=== PATIENT | male | born 1930 | race Caucasian/White ===

== ENCOUNTER → 2016-04-05 | Outpatient (CLI) | payer MEDICARE, OTHER ==
[2016-04-05 09:10] LABS: ALT 36 U/L (21-72); AST 30 U/L (17-59); Alkaline Phosphatase 83 U/L (38-126); Anion Gap 10 mmol/L; Blood Urea Nitrogen 16 mg/dL (9-20); Calcium 9.1 mg/dL (8.4-10.2); Carbon Dioxide 29 mmol/L (22-30); Chloride 107 mmol/L (98-107); Cholesterol 122 mg/dL (<200); Glucose 116 mg/dL (74-99); HDL Cholesterol 28 mg/dL (40-60); Non-African American GFR(MDRD) >60 (>60 ml/min/1.73 sqM); Potassium 4.8 mmol/L (3.5-5.1); Sodium 146 mmol/L (137-145); Total Bilirubin 1.2 mg/dL (0.2-1.3); Triglycerides 152 mg/dL (<150)
== END | disposition home or self-care (01) ==
LOC: LABWHC1 08:25
PROVIDERS: ATTEND Internal Medicine Interventional Cardiology
DX: E78.2 Mixed hyperlipidemia (principal)
CPT/HCPCS: 36415; 80053; 80061

== ENCOUNTER 2016-05-02 00:18 | Observation (INO) | payer MEDICARE, OTHER ==
[2016-05-02] MEDS ORDERED: NITROGLYCERIN SL TABS 0.4 MG TAB SUBLINGUAL STA ×3 (00:44)
[2016-05-02] MEDS ORDERED: ASPIRIN 81 MG CHEW PO STA (00:44)
--- NOTE | 2016-05-02 00:47 | ED ---
General Adult HPI - General Chief complaint: Chest Pain Stated complaint: Chest Pain Time Seen by Provider: 05/02/16 00:28 Source: patient, family, RN notes reviewed Mode of arrival: wheelchair Limitations: no limitations - History of Present Illness Initial comments: Patient is a pleasant 86-year-old male presenting to emergency Department complaining of chest discomfort. Onset of symptoms was about an hour ago. Discomfort remains. Discomfort is described as burning in the chest without radiation. Patient may feel slightly short of breath and was a little bit sweaty earlier. No nausea. Patient is unclear if he has had similar symptoms previously. Patient took a Prilosec and dissolvable antacid without improvement of symptoms. Patient does have history of CABG approximately 14 months ago. - Related Data Home Medications Medication Instructions Recorded Confirmed Atorvastatin [Lipitor] 40 mg PO HS 06/30/14 05/02/16 Metoprolol Tartrate [Lopressor] 50 mg PO DAILY 06/30/14 05/02/16 Warfarin [Coumadin] 5 mg PO SUTUWETHFRSA 01/01/16 05/02/16 Warfarin [Coumadin] 7.5 mg PO MO 01/01/16 05/02/16 rOPINIRole HCL [Requip] 2 mg PO BID 01/01/16 05/02/16 Calcium Acetate [Phoslo] 667 mg PO DAILY 05/02/16 05/02/16 Cyanocobalamin (Vitamin B-12) 1,000 mcg PO DAILY 05/02/16 05/02/16 [Vitamin B-12] Docusate [Colace] 100 mg PO BID 05/02/16 05/02/16 Zypan 1 tab PO DAILY 05/02/16 05/02/16 Allergies Allergy/AdvReac Type Severity Reaction Status Date / Time cat dander Allergy Itching Verified 05/02/16 00:32 pollen extracts Allergy Unknown Verified 05/02/16 00:32 Review of Systems ROS Statement: Those systems with pertinent positive or pertinent negative responses have been documented in the HPI. ROS Other: All systems not noted in ROS Statement are negative. Constitutional: Denies: fever Eyes: Denies: eye pain ENT: Denies: ear pain Respiratory: Reports: dyspnea. Denies: cough Cardiovascular: Reports: chest pain Endocrine: Denies: fatigue Gastrointestinal: Denies: abdominal pain, nausea Genitourinary: Denies: dysuria Musculoskeletal: Denies: back pain Skin: Denies: rash Neurological: Denies: weakness Past Medical History Past Medical History: Hyperlipidemia, Hypertension Additional Past Medical History / Comment(s): [place], RLS, intubated for over a week - ARDS leading to prolonged hospital stay History of Any Multi-Drug Resistant Organisms: None Reported Past Surgical History: Coronary Bypass/CABG, Heart Catheterization With Stent, Pacemaker, Tonsillectomy Additional Past Surgical History / Comment(s): 3 vessel bypass 2014, umbilical hernia repair, aortic valve replacement, cardiac stent x2 Past Anesthesia/Blood Transfusion Reactions: No Reported Reaction Date of Last Stent Placement:: 2010 Type of Cardiac Device: Permanent Pacemaker Device Placement Date:: 03/2014 Past Psychological History: No Psychological Hx Reported Smoking Status: Never smoker Past Alcohol Use History: Occasional Past Drug Use History: None Reported - Past Family History Daughter(s) History Unknown: Yes Family Medical History: Cancer Additional Family Medical History / Comment(s): BREAST Son(s) History Unknown: Yes Family Medical History: Cancer Additional Family Medical History / Comment(s): PANCREATIC Mother History Unknown: Yes Family Medical History: Cancer Additional Family Medical History / Comment(s): Breast cancer, at age 49 Father History Unknown: Yes Family Medical History: Myocardial Infarction ([place]) Additional Family Medical History / Comment(s): at age 60 d/t [place] General Exam Limitations: no limitations General appearance: alert, in no apparent distress Head exam: Present: atraumatic Eye exam: Present: normal appearance, PERRL ENT exam: Present: normal oropharynx Neck exam: Present: normal inspection Respiratory exam: Present: normal lung sounds bilaterally. Absent: chest wall tenderness Cardiovascular Exam: Present: regular rate, normal rhythm Expanded Peripheral pulses: 2+: Radial (R), Radial (L), Posterior Tibialis (R), Posterior Tibialis (L) GI/Abdominal exam: Present: soft. Absent: distended, tenderness Extremities exam: Present: normal inspection. Absent: pedal edema, calf tenderness Neurological exam: Present: alert Psychiatric exam: Present: normal affect, normal mood Skin exam: Absent: rash Course Vital Signs 05/02/16 05/02/16 05/02/16 00:29 00:51 01:07 Temperature 97.6 F Pulse Rate 90 87 72 Respiratory 18 16 16 Rate Blood Pressure 153/94 121/67 92/57 O2 Sat by Pulse 98 97 95 Oximetry EKG Findings - EKG Comments: EKG Findings:: Paced rhythm at 89. KS 202. QRS 160. QT 416. QTC 506. Left axis. Wide complex QRS. Nonspecific ST-T. Medical Decision Making - Medical Decision Making Patient reevaluated and partially improved. Case discussed in detail with Dr. Membreno, who will admit his patient with cardiology consult. Patient updated. - Lab Data Result diagrams: 05/02/16 00:40 05/02/16 00:40 Lab Results 05/02/16 05/02/16 05/02/16 Range/Units 00:40 00:40 00:40 WBC 7.4 (3.8-10.6) k/uL RBC 4.93 (4.30-5.90) m/uL Hgb 14.7 (13.0-17.5) gm/dL Hct 44.8 (39.0-53.0) % MCV 90.8 (80.0-100.0) fL MCH 29.8 (25.0-35.0) pg MCHC 32.9 (31.0-37.0) g/dL RDW 14.2 (11.5-15.5) % Plt Count 157 (150-450) k/uL Neutrophils % 48 % Lymphocytes % 32 % Monocytes % 8 % Eosinophils % 8 % Basophils % 1 % Neutrophils # 3.6 (1.3-7.7) k/uL Lymphocytes # 2.4 (1.0-4.8) k/uL Monocytes # 0.6 (0-1.0) k/uL Eosinophils # 0.6 (0-0.7) k/uL Basophils # 0.1 (0-0.2) k/uL PT (9.0-12.0) sec INR (<1.1) APTT (22.0-30.0) sec Sodium 141 (137-145) mmol/L Potassium 4.0 (3.5-5.1) mmol/L Chloride 107 (98-107) mmol/L Carbon Dioxide 25 (22-30) mmol/L Anion Gap 9 mmol/L BUN 19 (9-20) mg/dL Creatinine 1.00 (0.66-1.25) mg/dL Est GFR (MDRD) Af Amer >60 (>60 ml/min/1.73 sqM) Est GFR (MDRD) Non-Af >60 (>60 ml/min/1.73 sqM) Glucose 118 H (74-99) mg/dL Calcium 9.4 (8.4-10.2) mg/dL Magnesium 2.0 (1.6-2.3) mg/dL Total Bilirubin 1.1 (0.2-1.3) mg/dL AST 32 (17-59) U/L ALT 46 (21-72) U/L Alkaline Phosphatase 97 (38-126) U/L Total Creatine Kinase 82 (55-170) U/L CK-MB (CK-2) 1.2 (0.0-2.4) ng/mL CK-MB (CK-2) Rel Index 1.5 Troponin I <0.012 (0.000-0.034) ng/mL Total Protein 6.6 (6.3-8.2) g/dL Albumin 3.7 (3.5-5.0) g/dL 05/02/16 Range/Units 00:40 WBC (3.8-10.6) k/uL RBC (4.30-5.90) m/uL Hgb (13.0-17.5) gm/dL Hct (39.0-53.0) % MCV (80.0-100.0) fL MCH (25.0-35.0) pg MCHC (31.0-37.0) g/dL RDW (11.5-15.5) % Plt Count (150-450) k/uL Neutrophils % % Lymphocytes % % Monocytes % % Eosinophils % % Basophils % % Neutrophils # (1.3-7.7) k/uL Lymphocytes # (1.0-4.8) k/uL Monocytes # (0-1.0) k/uL Eosinophils # (0-0.7) k/uL Basophils # (0-0.2) k/uL PT 19.3 H (9.0-12.0) sec INR 2.0 (<1.1) APTT 27.0 (22.0-30.0) sec Sodium (137-145) mmol/L Potassium (3.5-5.1) mmol/L Chloride (98-107) mmol/L Carbon Dioxide (22-30) mmol/L Anion Gap mmol/L BUN (9-20) mg/dL Creatinine (0.66-1.25) mg/dL Est GFR (MDRD) Af Amer (>60 ml/min/1.73 sqM) Est GFR (MDRD) Non-Af (>60 ml/min/1.73 sqM) Glucose (74-99) mg/dL Calcium (8.4-10.2) mg/dL Magnesium (1.6-2.3) mg/dL Total Bilirubin (0.2-1.3) mg/dL AST (17-59) U/L ALT (21-72) U/L Alkaline Phosphatase (38-126) U/L Total Creatine Kinase (55-170) U/L CK-MB (CK-2) (0.0-2.4) ng/mL CK-MB (CK-2) Rel Index Troponin I (0.000-0.034) ng/mL Total Protein (6.3-8.2) g/dL Albumin (3.5-5.0) g/dL - Radiology Data Radiology results: image reviewed (Chest x-ray shows mild interstitial prominence.) Disposition Clinical Impression: Chest pain Disposition: ADMITTED IP TO THIS HOSP
[2016-05-02 00:56] LABS: Basophils # (A) 0.1 k/uL (0-0.2); Basophils % (A) 1 %; CH 30.6; CHCM 33.9; Eosinophils # (A) 0.6 k/uL (0-0.7); Eosinophils % (A) 8 %; HCT 44.8 % (39.0-53.0); HDW 2.97; HGB 14.7 gm/dL (13.0-17.5); Luc # (Auto) 0.25; Luc % (Auto) 3; Lymphocytes # (A) 2.4 k/uL (1.0-4.8); Lymphocytes % (A) 32 %; MCH 29.8 pg (25.0-35.0); MCHC 32.9 g/dL (31.0-37.0); MCV 90.8 fL (80.0-100.0); Mean Platelet Volume 9.5; Monocytes # (A) 0.6 k/uL (0-1.0); Monocytes % (A) 8 %; Neutrophils # (A) 3.6 k/uL (1.3-7.7); Neutrophils % (A) 48 %; RBC 4.93 m/uL (4.30-5.90); RDW 14.2 % (11.5-15.5); WBC 7.4 k/uL (3.8-10.6); WBC (Perox) 7.28
[2016-05-02 01:02] LABS: ALT 46 U/L (21-72); AST 32 U/L (17-59); Alkaline Phosphatase 97 U/L (38-126); Anion Gap 9 mmol/L; Blood Urea Nitrogen 19 mg/dL (9-20); Calcium 9.4 mg/dL (8.4-10.2); Carbon Dioxide 25 mmol/L (22-30); Chloride 107 mmol/L (98-107); Glucose 118 mg/dL (74-99); Non-African American GFR(MDRD) >60 (>60 ml/min/1.73 sqM); Prothrombin Time 19.3 sec (9.0-12.0); Sodium 141 mmol/L (137-145); Total Bilirubin 1.1 mg/dL (0.2-1.3); Total Protein 6.6 g/dL (6.3-8.2)
--- NOTE | 2016-05-02 01:08 | XR ---
Exam: XR CXR 2 VIEWS History: Chest pain. Comparison: 01/01/16. Findings: The left pacemaker redemonstrated. No focal consolidation or significant effusion. Mild prominence of pulmonary vasculature. Heart shadow is normal in transverse dimension. Small nodular opacity in the lateral right lower is unchanged and probably represents a nipple shadow. Impression: Redemonstration of mild prominence of interstitial lung markings/vessels. Similar to 01/01/16. No new focal consolidation or significant effusion. No substantial change appreciated.
[2016-05-02 01:18] LABS: Creatine Kinase 82 U/L (55-170)
[2016-05-02 01:31] LABS: Creatine Kinase MB 1.2 ng/mL (0.0-2.4); Troponin I <0.012 ng/mL (0.000-0.034)
[2016-05-02] MEDS ORDERED: NITROGLYCERIN SL TABS 0.4 MG TAB SUBLINGUAL PRN ×2 (01:50→09:42)
[2016-05-02] MEDS: NITROGLYCERIN OINT 1 INCH/GM PACKET TOPICAL SCH (06:23)
[2016-05-02 07:24] LABS: Creatine Kinase 65 U/L (55-170)
[2016-05-02 07:37] LABS: Troponin I <0.012 ng/mL (0.000-0.034)
[2016-05-02] MEDS ORDERED: ZYPAN PO SCH (09:00)
--- NOTE | 2016-05-02 09:12 | P.CRDCN ---
History of Present Illness Consult date: 05/02/16 Requesting physician: Rubens Membreno Consult reason: chest pain Chief complaint: Chest pain History of present illness: This is a pleasant 86-year-old gentleman who follows regularly with Dr. Arceo in the office. He has a known history of coronary artery disease with prior coronary artery bypass grafting surgery, patient underwent saphenous vein graft to the OM1 and 2, saphenous vein graft to the RCA, history also of tissue aortic valve in 2014. Prior to that the patient did undergo stent placement of the RCA in 2009 and 2010. Patient also has history of hypertension , hyperlipidemia, peripheral vascular disease, prior pacemaker implantation, and paroxysmal atrial fibrillation. Most recent stress test was performed here in December 2015 which did not reveal any evidence of reversible ischemia. He presents to the hospital on this occasion with symptoms of chest discomfort which she describes as heartburn. He states that the symptoms woke him from sleep, he took antacids without any relief of symptoms, and came to the emergency room for further evaluation. He does state that he has been getting these symptoms off and on, he describes them as a burning sensation in the center of his chest. He denies any associated diaphoresis, mild shortness of breath and no nausea. EKG on arrival here shows atrial sensed ventricular paced rhythm with underlying normal sinus rhythm. EKG performed this morning shows paced rhythm with underlying normal sinus rhythm and nonspecific ST-T wave changes. He is noted to have occasional PVCs on the monitor. Chest x-ray does not reveal any acute changes. Mild prominence of interstitial lung markings similar to S2 x-ray performed in December. Blood pressure on arrival to the emergency room 153/90 with a heart rate in the 90s, 98% on room air. Blood pressure this morning 127/70 with a heart rate in the 70s. Laboratory data was reviewed, CBC normal, INR 2.0, potassium 4.0, BUN 19, creatinine 1.0. Troponins have been negative 2. At the time of my examination this morning, patient is currently chest pain-free. He states that after arriving here and taking sublingual nitro he has had no further symptoms. Past Medical History Past Medical History: Hyperlipidemia, Hypertension Additional Past Medical History / Comment(s): [place], RLS, intubated for over a week - ARDS leading to prolonged hospital stay History of Any Multi-Drug Resistant Organisms: None Reported Past Surgical History: Coronary Bypass/CABG, Heart Catheterization With Stent, Pacemaker, Tonsillectomy Additional Past Surgical History / Comment(s): 3 vessel bypass 2015, umbilical hernia repair, aortic valve replacement, cardiac stent x2 Past Anesthesia/Blood Transfusion Reactions: No Reported Reaction Date of Last Stent Placement:: 2010 Type of Cardiac Device: Permanent Pacemaker Device Placement Date:: 03/2014 Past Psychological History: No Psychological Hx Reported Smoking Status: Never smoker Past Alcohol Use History: Occasional Past Drug Use History: None Reported - Past Family History Daughter(s) History Unknown: Yes Family Medical History: Cancer Additional Family Medical History / Comment(s): BREAST Son(s) History Unknown: Yes Family Medical History: Cancer Additional Family Medical History / Comment(s): PANCREATIC Mother History Unknown: Yes Family Medical History: Cancer Additional Family Medical History / Comment(s): Breast cancer, at age 49 Father History Unknown: Yes Family Medical History: Myocardial Infarction ([place]) Additional Family Medical History / Comment(s): at age 60 d/t [place] Medications and Allergies Home Medications Medication Instructions Recorded Confirmed Type Atorvastatin [Lipitor] 40 mg PO HS 06/30/14 05/02/16 History Metoprolol Tartrate [Lopressor] 50 mg PO DAILY 06/30/14 05/02/16 History Warfarin [Coumadin] 5 mg PO SUTUWETHFRSA 01/01/16 05/02/16 History Warfarin [Coumadin] 7.5 mg PO MO 01/01/16 05/02/16 History rOPINIRole HCL [Requip] 2 mg PO BID 01/01/16 05/02/16 History Calcium Acetate [Phoslo] 667 mg PO DAILY 05/02/16 05/02/16 History Cyanocobalamin (Vitamin B-12) 1,000 mcg PO DAILY 05/02/16 05/02/16 History [Vitamin B-12] Docusate [Colace] 100 mg PO BID 05/02/16 05/02/16 History Multivitamin [Men's Multi-Vitamin] 1 tab PO DAILY 05/02/16 05/02/16 History Zypan 1 tab PO DAILY 05/02/16 05/02/16 History Allergies Allergy/AdvReac Type Severity Reaction Status Date / Time cat dander Allergy Itching Verified 05/02/16 08:07 pollen extracts Allergy Unknown Verified 05/02/16 08:07 Physical Exam Vitals: Vital Signs Temp Pulse Pulse Resp BP Pulse Ox 05/02/16 07:47 97.7 F 70 18 127/71 97 05/02/16 02:44 77 16 05/02/16 02:26 97.6 F 68 16 135/65 97 Intake and Output 05/01/16 05/02/16 05/02/16 22:59 06:59 14:59 Other: Voiding Method Toilet # Voids 2 PHYSICAL EXAMINATION: HEENT: Head is atraumatic, normocephalic. Pupils equal, round. Neck is supple. There is no elevated jugular venous pressure. HEART EXAMINATION: Heart S1 and S2 systolic ejection murmur is heard. CHEST EXAMINATION: Lungs are clear with fine crackles to bilateral bases. ABDOMEN: Soft, nontender. Bowel sounds are heard. No organomegaly noted. EXTREMITIES: 2+ peripheral pulses with trace evidence of peripheral edema and no calf tenderness noted. NEUROLOGIC patient is awake, alert and oriented -3. . Results 05/02/16 00:40 05/02/16 00:40 Cardiac Enzymes 05/02/16 Range/Units 06:46 CK-MB (CK-2) 1.0 (0.0-2.4) ng/mL Troponin I <0.012 (0.000-0.034) ng/mL Current Medications Generic Name Dose Route Start Last Admin Trade Name Freq PRN Reason Stop Dose Admin Aspirin 325 mg 05/03/16 09:00 Aspirin PO DAILY [facility] Atorvastatin Calcium 40 mg 05/02/16 21:00 Lipitor PO HS [facility] Calcium Acetate 667 mg 05/02/16 08:30 Phoslo PO W/BRKFST [facility] Cyanocobalamin 1,000 mcg 05/02/16 12:00 Vitamin B-12 PO DAILY@1200 [facility] Docusate Sodium 100 mg 05/02/16 09:00 Colace PO BID [facility] Metoprolol Tartrate 50 mg 05/02/16 09:00 Lopressor PO DAILY [facility] Multivitamins 1 each 05/02/16 12:00 Theragran PO DAILY@1200 [facility] Nitroglycerin 1 inch 05/02/16 06:00 05/02/16 06:23 Nitro-Bid Oint TOPICAL Not Given Q6HR [facility] Nitroglycerin 0.4 mg 05/02/16 01:50 Nitrostat SUBLINGUAL Q5M PRN Chest Pain Ropinirole HCl 2 mg 05/02/16 09:00 Requip PO BID [facility] Sodium Chloride 10 ml 05/02/16 09:00 Saline Flush IV BID ROSALIA Intake and Output 05/01/16 05/02/16 05/02/16 22:59 06:59 14:59 Other: Voiding Method Toilet # Voids 2 EKG Interpretations (text) EKG shows A sensed V paced rhythm with underlying normal sinus rhythm. Nonspecific ST-T wave changes Assessment and Plan Plan: Assessment and plan #1 symptoms of chest discomfort which patient describes as heartburn, troponins negative 2. EKG shows atrial sensed V paced rhythm with underlying normal sinus rhythm and nonspecific ST-T wave changes. Left bundle-branch block pattern. Most recent Madelyn scan stress test was performed in December of last year which was negative for reversible ischemia. #2 known history of coronary artery disease with prior bypass surgery #3 history of tissue aortic valve replacement #4 prior pacemaker implantation #5 paroxysmal atrial fibrillation, on Coumadin, INR 2.0 #6 hypertension #7 hyperlipidemia #8 peripheral vascular disease Plan Most recent echocardiogram with Doppler study was performed in December 2015 which revealed an ejection fraction of 40-45%. Mild mitral and mild tricuspid regurgitation. We will decrease patient's aspirin 81 mg daily. We will repeat an echocardiogram with Doppler study. Patient may need to undergo repeat cardiac catheterization in view of the pack that he is having persistent symptoms and recent stress test in December was negative for any reversible ischemia. Further recommendations to follow. DNP note has been reviewed, I agree with a documented findings and plan of care. Patient was seen and examined.
[2016-05-02] MEDS ORDERED: SODIUM CHLORIDE 0.9% 1,000 ML in EMPTY BAG 1 BAG IV ONE (09:42)
[2016-05-02] MEDS ORDERED: ALPRAZolam 0.5 MG TAB PO PRN (09:42)
[2016-05-02] MEDS ORDERED: ALPRAZolam 0.25 MG TAB PO PRN (09:42)
[2016-05-02] MEDS ORDERED: ATORVASTATIN 80 MG TAB PO STA (09:42)
[2016-05-02] MEDS ORDERED: ASPIRIN 325 MG TAB PO STA (09:42)
[2016-05-02] MEDS: METOPROLOL TARTRATE 50 MG TAB PO SCH (11:05)
[2016-05-02] MEDS: DOCUSATE 100 MG CAP PO SCH ×2 (11:05→19:59)
[2016-05-02] MEDS: CALCIUM ACETATE 667 MG CAP PO SCH (11:06)
--- NOTE | 2016-05-02 11:20 | US ---
EXAMINATION TYPE: US liver DATE OF EXAM: 05/02/2016 10:55 AM COMPARISON: In pacs CLINICAL HISTORY: epigastric pain. Indigestion EXAM MEASUREMENTS: Liver Length: 14.6 cm Gallbladder Wall: 0.3 cm CBD: 0.4 cm Right Kidney: 10.4 x 5.0 x 5.9 cm TECHNOLOGIST IMPRESSION: Pancreas: obscured by overlying midline gas Liver: scanned intercostally, limited by rib shadowing, slightly heterogeneous, 1.2 x 1.0cm cyst fausto r sol hepatis Gallbladder: wnl Evidence for sonographic Milan's sign: no CBD: visualized portions wnl, limited by overlying bowel gas Right Kidney: wnl Pancreas is obscured on images saved due to shadowing from overlying bowel gas. Visualized liver is h eterogeneously hyperechoic in appearance without intrahepatic ductal dilatation. Evaluation for focal masses is limited due to the heterogeneity. Suspect diffuse fatty infiltration. Phrygian cap or fold ing in the gallbladder is seen. No shadowing mobile gallstones are noted. Limited images right kidney show no gross hydronephrosis. IMPRESSION: Suboptimal study without gallstones or ultrasound evidence for acute cholecystitis.
--- NOTE | 2016-05-02 11:37 | ECHOF ---
Referral Reason:chest pain MEASUREMENTS -------- HEIGHT: 182.9 cm WEIGHT: 104.3 kg BP: 127/71 RVIDd: 3.2 cm (< 3.3) IVSd: 1.2 cm (0.6 - 1.1) LVIDd: 4.1 cm (3.9 - 5.3) LVPWd: 1.3 cm (0.6 - 1.1) IVSs: 1.5 cm LVIDs: 3.5 cm LVPWs: 1.7 cm LAESV Index (A-L): 51.10 ml/m Ao Diam: 2.6 cm (2.0 - 3.7) AV Cusp: 1.5 cm (1.5 - 2.6) LA Diam: 3.4 cm (2.7 - 3.8) MV EXCURSION: 11.106 mm (> 18.000) MV EF SLOPE: 61 mm/s (70 - 150) EPSS: 0.6 cm MV E Taras: 0.78 m/s MV DecT: 157 ms MV A Taras: 1.34 m/s MV E/A Ratio: 0.58 FINDINGS -------- Paced rhythm. This was a technically difficult study with suboptimal views. There is mild concentric left ventricular hypertrophy. Overall left ventricular systolic function is mild-moderately impaired with, an EF between 40 - 45 %. Inferior Hypokinesis Septal Hypokinesis The right ventricle is normal in size. LA is severely dilated >40 ml/m2 The right atrium is normal in size. 1.5mg of Definity was utilized for enhancement of images There is mild aortic valve sclerosis. The mitral valve leaflets are mildly thickened. Mild mitral annular calcification present. The peak and mean MV gradients are 7.33mmHg 2.44mmHg as measured by doppler. Trace tricuspid regurgitation present. Trace/mild (physiologic) pulmonic regurgitation. The aortic root size is normal. Normal inferior vena cava with normal inspiratory collapse consistent with estimated right atrial pressure of 5 mmHg. CONCLUSIONS -------- 1. Paced rhythm. 2. 1.5mg of Definity was utilized for enhancement of images 3. There is mild aortic valve sclerosis. 4. The mitral valve leaflets are mildly thickened. 5. Mild mitral annular calcification present. 6. The peak and mean MV gradients are 7.33mmHg 2.44mmHg as measured by doppler. 7. Trace tricuspid regurgitation present. 8. Trace/mild (physiologic) pulmonic regurgitation. 9. The aortic root size is normal. 10. Normal inferior vena cava with normal inspiratory collapse consistent with estimated right atrial pressure of 5 mmHg. 11. This was a technically difficult study with suboptimal views. 12. There is mild concentric left ventricular hypertrophy. 13. Overall left ventricular systolic function is mild-moderately impaired with, an EF between 40 - 45 %. 14. Inferior Hypokinesis 15. Septal Hypokinesis 16. The right ventricle is normal in size. 17. LA is severely dilated >40 ml/m2 18. The right atrium is normal in size. PLATE MAKER: Marci Maravilla RDCS
[2016-05-02] MEDS ORDERED: CYANOCOBALAMIN 500 MCG TAB PO SCH (12:00)
[2016-05-02] MEDS ORDERED: MULTIVITAMINS, THERA 1 EACH TAB PO SCH (12:00)
[2016-05-02] MEDS ORDERED: LIDOCAINE 2% INJ 20 MG/ML (20 ML MDV) ONE (12:40)
[2016-05-02] MEDS ORDERED: HEPARIN SODIUM 1,000 UNIT/ML VIAL ONE (12:40)
[2016-05-02] MEDS ORDERED: MIDAZOLAM 2 MG/2 ML VIAL ONE (12:41)
[2016-05-02] MEDS ORDERED: VERAPAMIL 2.5 MG/ML 2 ML AMP ONE (12:41)
[2016-05-02] MEDS ORDERED: SODIUM CHLORIDE 0.9% (PF) 10 ML VIAL ONE (12:41)
[2016-05-02] MEDS ORDERED: fentaNYL (PF) 50 MCG/ML 2 ML AMP ONE (12:52)
[2016-05-02] MEDS ORDERED: fentaNYL (PF) 50 MCG/ML 2 ML AMP IV ONE (12:54)
[2016-05-02] MEDS ORDERED: LIDOCAINE 2% INJ 20 MG/ML SQ ONE ×2 (12:56→12:57)
[2016-05-02] MEDS ORDERED: IOHEXOL 350 MG/ML 100 ML BOTTLE INJ ONE (13:13)
[2016-05-02] MEDS ORDERED: RX INFO: IV CONTRAST WAS GIVEN 1 EACH MISC MISCELLANE PRN (13:23)
[2016-05-02] MEDS ORDERED: SODIUM CHLORIDE 0.9% 1,000 ML IV SCH (13:30)
[2016-05-02 14:12] LABS: Creatine Kinase 62 U/L (55-170)
[2016-05-02 14:24] LABS: Creatine Kinase MB 0.9 ng/mL (0.0-2.4); Troponin I <0.012 ng/mL (0.000-0.034)
--- NOTE | 2016-05-02 15:07 | P.HPIM ---
History of Present Illness H&P Date: 05/02/16 Chief Complaint: Chest pain Patient is an 86-year-old male, patient of Dr. Membreno in the outpatient setting, with medical history significant for coronary artery disease with previous heart catheterization with stents, triple coronary artery bypass grafting with aortic valve replacement in 2014, GERD, hyperlipidemia, hypertension, peripheral vascular disease, paroxysmal atrial fibrillation, and permanent pacemaker. Patient sees Dr. Arceo for cardiology service in the outpatient setting. Patient presented to the emergency department with complaints of chest discomfort described as burning. Patient states that he ate some spicy buffalo wings around 10:00 PM, went to bed, and woke up 2 hours later with a burning sensation in his chest. Patient states that he used to take Prilosec for heartburn but hasn't been taking them for a while. Patient did take a Prilosec when he woke up with no relief. No associated symptoms per patient. EKG on arrival with evidence of atrial sensed ventricular paced rhythm and nonspecific ST-T wave changes. Chest x-ray with no acute cardiopulmonary process. Troponins negative 2. Patient was evaluated by cardiology service and underwent heart catheterization which was reported negative. Patient is evaluated in the observation unit where he is status post heart catheterization. Patient denies chills, fevers, shortness of breath, chest pain, or abdominal pain. Past Medical History Past Medical History: Hyperlipidemia, Hypertension Additional Past Medical History / Comment(s): [place], RLS, intubated for over a week - ARDS leading to prolonged hospital stay History of Any Multi-Drug Resistant Organisms: None Reported Past Surgical History: Coronary Bypass/CABG, Heart Catheterization With Stent, Pacemaker, Tonsillectomy Additional Past Surgical History / Comment(s): 3 vessel bypass 2014, umbilical hernia repair, aortic valve replacement, cardiac stent x2 Past Anesthesia/Blood Transfusion Reactions: No Reported Reaction Date of Last Stent Placement:: 2010 Type of Cardiac Device: Permanent Pacemaker Device Placement Date:: 03/2014 Past Psychological History: No Psychological Hx Reported Smoking Status: Never smoker Past Alcohol Use History: Occasional Past Drug Use History: None Reported - Past Family History Daughter(s) History Unknown: Yes Family Medical History: Cancer Additional Family Medical History / Comment(s): BREAST Son(s) History Unknown: Yes Family Medical History: Cancer Additional Family Medical History / Comment(s): PANCREATIC Mother History Unknown: Yes Family Medical History: Cancer Additional Family Medical History / Comment(s): Breast cancer, at age 49 Father History Unknown: Yes Family Medical History: Myocardial Infarction ([place]) Additional Family Medical History / Comment(s): at age 60 d/t [place] Medications and Allergies Home Medications Medication Instructions Recorded Confirmed Type Atorvastatin [Lipitor] 40 mg PO HS 06/30/14 05/02/16 History Metoprolol Tartrate [Lopressor] 50 mg PO DAILY 06/30/14 05/02/16 History Warfarin [Coumadin] 5 mg PO SUTUWETHFRSA 01/01/16 05/02/16 History Warfarin [Coumadin] 7.5 mg PO MO 01/01/16 05/02/16 History rOPINIRole HCL [Requip] 2 mg PO BID 01/01/16 05/02/16 History Calcium Acetate [Phoslo] 667 mg PO DAILY 05/02/16 05/02/16 History Cyanocobalamin (Vitamin B-12) 1,000 mcg PO DAILY 05/02/16 05/02/16 History [Vitamin B-12] Docusate [Colace] 100 mg PO BID 05/02/16 05/02/16 History Multivitamin [Men's Multi-Vitamin] 1 tab PO DAILY 05/02/16 05/02/16 History Zypan 1 tab PO DAILY 05/02/16 05/02/16 History Allergies Allergy/AdvReac Type Severity Reaction Status Date / Time cat dander Allergy Itching Verified 05/02/16 08:07 pollen extracts Allergy Unknown Verified 05/02/16 08:07 Physical Exam Vitals: Vital Signs Temp Pulse Pulse Pulse Resp BP Pulse Ox 05/02/16 13:30 97.4 F L 70 18 109/58 96 05/02/16 11:38 97.6 F 76 18 104/57 97 05/02/16 07:47 97.7 F 70 18 127/71 97 05/02/16 02:44 77 16 05/02/16 02:26 97.6 F 68 16 135/65 97 Intake and Output 05/01/16 05/02/16 05/02/16 22:59 06:59 14:59 Intake Total 100 Balance 100 Intake: IV 100 Other: Voiding Method Toilet Toilet # Voids 2 GENERAL: Pt awake and alert, well-appearing, well-nourished, and in no acute distress. HEAD: Atraumatic, normocephalic. EYES: Pupils equal and round. Sclera anicteric, conjunctiva are normal. ENT: Moist mucous membranes. NECK: Supple without lymphadenopathy or JVD. LUNGS: Breath sounds clear to auscultation bilaterally. No wheezes, rales, or rhonchi. HEART: Heart S1, S2, no S3 or S4. Regular rate and rhythm. No murmurs, rubs or gallops. Permanent pacemaker in place. ABDOMEN: Soft, obese, nontender, nondistended, normoactive bowel sounds. No guarding, no rebound. No masses or organomegaly appreciated. EXTREMITIES: Palpable peripheral pulses. No edema. No calf tenderness. NEUROLOGICAL: Pt oriented x 3. No focal deficits noted. Strength and sensation grossly intact. PSYCH: Normal mood, normal affect. SKIN: Warm, dry. Right groin incision soft, no erythema or drainage. Results CBC & Chem 7: 05/02/16 00:40 05/02/16 00:40 Comments: Echocardiogram with Doppler: Overall left ventricular systolic function mild to moderately impaired with an EF between 40-45%; inferior hypokinesis; septal hypokinesis; left atrium is severely dilated. Ultrasound liver: Suboptimal study without gallstones or ultrasound evidence for acute cholecystitis. Chest x-ray: report reviewed (No new focal consolidation or significant effusion. No substantial change appreciated from last x-ray of 01/01/2016.) Thrombosis Risk Factor Assmnt - DVT/VTE Prophylaxis DVT/VTE Prophylaxis: Pharmacologic Prophylaxis ordered, Mechanical Prophylaxis ordered - Choose All That Apply Each Factor Represents 1 point: Obesity (BMI >25) Each Risk Factor Represents 3 Points: Age 75 years or older Thrombosis Risk Factor Assessment Total Risk Factor Score: 4 Thrombosis Risk Factor Assessment Level: Moderate Risk Assessment and Plan Plan: Impression and plan: 1. Chest pain, present on arrival, suspect noncardiac in nature. Heart catheterization negative. 2. GERD. 2. Coronary artery disease. 3. Hyperlipidemia. 4. Hypertension. 5. Paroxysmal atrial fibrillation. 6. History of previous heart catheterization with stent placement. 7. History of coronary artery bypass with aortic valve replacement. 8. Permanent pacemaker. Continue to monitor patient. Continue current medications. Continue to follow cardiology. Continue GI and DVT prophylaxis. From a medical standpoint, patient is stable for discharge when cleared by cardiology. Patient will follow -up with Dr. Membreno in the outpatient setting early next week. The above impression and plan have been discussed and directed by Dr. Membreno. Taylor TERRY acting as scribe for Dr. Membreno.
[2016-05-02] MEDS: PANTOPRAZOLE 40 MG TABLET PO SCH (17:36)
[2016-05-02] MEDS ORDERED: ATORVASTATIN 40 MG TAB PO SCH (21:00)
--- NOTE | 2016-05-02 22:25 | CC ---
DATE OF SERVICE: Mr. Liu is an 86-year-old male with known history of coronary artery disease, status post aortic valve replacement and coronary artery bypass grafting, who presented with symptoms of chest discomfort that has been recurrent. He has had multiple recent admissions to the hospital. In view of that, recommendation was made regarding cardiac catheterization. The procedure as well as risks and complications was discussed with the patient, who was in full understanding and agreement. PROCEDURE: After explaining the procedure to the patient, the patient was brought to the labor law professor in a fasting, semi-sedated after receiving fentanyl and Benadryl and achieving moderate conscious sedated state. Using Xylocaine anesthesia and Seldinger technique, a 6 Portuguese sheath was introduced in the right femoral artery. Selective right and left coronary angiography was performed using 6 Portuguese 4 bend right and left Lamont catheters. Multiple views, including hemiaxial views, were taken of the coronary arteries. Following that, the 6 Portuguese right Lamont catheter was used to cannulate the saphenous vein graft to the obtuse marginal branch, right coronary artery. Following that, catheter and sheaths were removed. Hemostasis was obtained with deployment of an Angio-Seal. There were no immediate complications. Patient was returned to his room in stable condition. FINDINGS LEFT MAIN: This is a large-sized vessel, short in distance, bifurcating into left circumflex and left anterior descending artery. Left main coronary artery is without any obstructive coronary artery disease. LEFT ANTERIOR DESCENDING ARTERY: This is a large-sized vessel reaching toward the apex with a wrap around the apex segment, giving rise to a large diagonal branch. At the takeoff of the diagonal branch, there is 20% to 30% calcified plaque. The rest of the vessel has no high-grade stenosis. LEFT CIRCUMFLEX: This is a non-dominant vessel giving rise to first obtuse marginal branch. It is subtotally occluded distally giving rise to a smaller obtuse marginal branch that has no evidence of high-grade stenosis. RIGHT CORONARY ARTERY: This is a dominant vessel. The mid and the distal segment is subtotally occluded with an area of stenosis up to 99%. There is competitive flow in the PDA from the saphenous vein graft. SAPHENOUS VEIN GRAFT TO THE RIGHT CORONARY ARTERY: The proximal and distal anastomotic sites are patent. The flow into the PDA is brisk. There is no evidence of high-grade stenosis. SAPHENOUS VEIN GRAFT TO THE OBTUSE MARGINAL BRANCH: This is a Y graft. The proximal and distal anastomotic sites are patent. The flow into the diagonal branch is brisk. There is no evidence of high-grade stenosis. LEFT VENTRICULOGRAM: Left ventriculogram was not performed. CONCLUSION: 1. Subtotally occluded mid and distal right coronary artery as well as first obtuse marginal branch. 2. Mild to moderate disease in the proximal left anterior descending coronary artery. 3. Patent saphenous vein graft to the right coronary artery and patent saphenous vein graft to the left circumflex. RECOMMENDATION: At this time I would recommend continued medical therapy with the aggressive risk factor modifications that have been initiated. Those findings and recommendations were discussed with the patient and his family, who were in full understanding and agreement. The duration of the procedure was 16 minutes.
--- NOTE | 2016-05-02 22:28 | LTR ---
May 02, 2016 RE: Jason Liu Dear Dr. Membreno, I had the pleasure of performing cardiac catheterization on Mr. Liu at [facility] on May 02, and a full copy of the procedure note will be forwarded to you. In brief, he was found to have patent saphenous vein graft to the right coronary artery and to the obtuse marginal branch with mild to moderate disease in the LAD. In view of these findings, I have recommended continued medical therapy with the aggressive coronary risk modifications you have initiated. Thank you again for allowing me to participate in his care. Please feel free to call with any questions. Sincerely, BASILIA WIN MD
[2016-05-03 04:51] VITALS: RESP 16
[2016-05-03] MEDS: NITROGLYCERIN OINT 1 INCH/GM PACKET TOPICAL SCH (07:45)
[2016-05-03 07:55] VITALS: BP 111/58; PULSE 81; TEMP 98
[2016-05-03 08:11] LABS: Basophils % (A) 1 %; CH 30.6; Eosinophils # (A) 0.3 k/uL (0-0.7); Eosinophils % (A) 5 %; HCT 43.1 % (39.0-53.0); HDW 2.89; HGB 13.9 gm/dL (13.0-17.5); Luc # (Auto) 0.23; Luc % (Auto) 3; Lymphocytes % (A) 29 %; MCH 30.1 pg (25.0-35.0); MCHC 32.3 g/dL (31.0-37.0); MCV 93.2 fL (80.0-100.0); Mean Platelet Volume 9.7; Monocytes # (A) 0.5 k/uL (0-1.0); Monocytes % (A) 7 %; Neutrophils # (A) 3.9 k/uL (1.3-7.7); Neutrophils % (A) 56 %; RBC 4.63 m/uL (4.30-5.90); RDW 14.2 % (11.5-15.5); WBC (Perox) 7.47
[2016-05-03 08:17] LABS: INR 2.4 (<1.1); Prothrombin Time 22.6 sec (9.0-12.0)
[2016-05-03 08:28] LABS: Anion Gap 10 mmol/L; Blood Urea Nitrogen 17 mg/dL (9-20); Carbon Dioxide 24 mmol/L (22-30); Chloride 108 mmol/L (98-107); Cholesterol 94 mg/dL (<200); Glucose 100 mg/dL (74-99); HDL Cholesterol 24 mg/dL (40-60); Non-African American GFR(MDRD) 57 (>60 ml/min/1.73 sqM); Potassium 4.6 mmol/L (3.5-5.1); Sodium 142 mmol/L (137-145); Triglycerides 108 mg/dL (<150)
[2016-05-03] MEDS: DOCUSATE 100 MG CAP PO SCH (08:33)
[2016-05-03] MEDS: METOPROLOL TARTRATE 50 MG TAB PO SCH (08:33)
[2016-05-03] MEDS: PANTOPRAZOLE 40 MG TABLET PO SCH (08:33)
[2016-05-03] MEDS: CALCIUM ACETATE 667 MG CAP PO SCH (08:33)
[2016-05-03] MEDS ORDERED: ASPIRIN 81 MG CHEW PO SCH (09:00)
[2016-05-03] MEDS ORDERED: ASPIRIN 325 MG TAB PO SCH (09:00)
--- NOTE | 2016-05-03 11:14 | PN ---
This patient was admitted with symptoms suggestive of unstable angina. Patient underwent a cardiac catheterization. No significant progression of the coronary artery disease was detected. Patient is doing well. Right groin is normal. Blood pressure is 110/58 mmHg. Heart: S1 and S2 normal. Lungs are clear to auscultation and percussion. Patient can be discharged home on the medical treatment and he will follow up with Dr. Arceo.
== END 2016-05-03 11:50 | disposition home or self-care (01) ==
LOC: EC 00:18 → 3OBS 01:50
PROVIDERS: ADMIT Family Medicine; ATTEND Family Medicine
DX: R07.89 Other chest pain (principal); K21.9 Gastro-esophageal reflux disease without esophagitis; I25.10 Atherosclerotic heart disease of native coronary artery without angina pectoris; E78.5 Hyperlipidemia, unspecified; I48.0 Paroxysmal atrial fibrillation; I10 Essential (primary) hypertension; Z95.5 Presence of coronary angioplasty implant and graft; Z95.0 Presence of cardiac pacemaker; Z95.1 Presence of aortocoronary bypass graft; Z95.3 Presence of xenogenic heart valve; G25.81 Restless legs syndrome; I73.9 Peripheral vascular disease, unspecified; H91.90 Unspecified hearing loss, unspecified ear; Z79.899 Other long term (current) drug therapy; Z79.01 Long term (current) use of anticoagulants; J30.1 Allergic rhinitis due to pollen; Z91.048 Other nonmedicinal substance allergy status; Z82.49 Family history of ischemic heart disease and other diseases of the circulatory system
CPT/HCPCS: 99285; 36415; 93005; 93459; 80061; 80053; 80048; 82550; 82553; 83735; 84100; 84484; 85025 ×2; 85610 ×2; 85730; 71020; 76705; G0378 ×2; C8929; C1760; C1894; C1769; J2001; Q9967; J3010; Q9957; 93306

== ENCOUNTER → 2016-07-02 | Outpatient (CLI) | payer MEDICARE ==
[2016-07-02 11:04] LABS: ALT 36 U/L (21-72); AST 28 U/L (17-59); Alkaline Phosphatase 68 U/L (38-126); Anion Gap 10 mmol/L; Blood Urea Nitrogen 21 mg/dL (9-20); Carbon Dioxide 23 mmol/L (22-30); Chloride 111 mmol/L (98-107); Cholesterol 124 mg/dL (<200); Glucose 109 mg/dL (74-99); HDL Cholesterol 33 mg/dL (40-60); Non-African American GFR(MDRD) 58 (>60 ml/min/1.73 sqM); Potassium 4.3 mmol/L (3.5-5.1); Sodium 144 mmol/L (137-145); Total Bilirubin 1.4 mg/dL (0.2-1.3); Total Protein 6.9 g/dL (6.3-8.2); Triglycerides 100 mg/dL (<150)
== END | disposition home or self-care (01) ==
LOC: LABWHC1 09:45
PROVIDERS: ATTEND Internal Medicine Interventional Cardiology
DX: E78.2 Mixed hyperlipidemia (principal)
CPT/HCPCS: 36415; 80053; 80061

== ENCOUNTER 2017-04-22 17:02 | Emergency (ER) | payer MEDICARE ==
[2017-04-22 17:07] VITALS: RESP 18; TEMP 98
--- NOTE | 2017-04-22 17:32 | ED ---
General Adult HPI - General Chief complaint: Chest Pain Stated complaint: Chest pain Time Seen by Provider: 04/22/17 17:15 Source: patient, family, RN notes reviewed, old records reviewed Mode of arrival: wheelchair Limitations: no limitations - History of Present Illness Initial comments: 87-year-old male history of CAD status post stenting, valve replacement, pacemaker, and COPD presents with left-sided chest pain. Pain has been coming and going over the past 3 days. Frequency is increased over the past several hours. He has sharp left-sided chest pain which lasts only a second or 2. This completely resolved after each episode. No associated nausea or diaphoresis. No pain at the time my evaluation. Patient denies any strenuous activity. Denies any injury to his chest. Denies cough or fever. No worsening dyspnea above baseline. - Related Data Home Medications Medication Instructions Recorded Confirmed Atorvastatin [Lipitor] 40 mg PO HS 06/30/14 04/22/17 Metoprolol Tartrate [Lopressor] 25 mg PO HS 06/30/14 04/22/17 Warfarin [Coumadin] 5 mg PO SUMOTUWETHSA 01/01/16 04/22/17 rOPINIRole HCL [Requip] 2 mg PO BID 01/01/16 04/22/17 Cyanocobalamin (Vitamin B-12) 1,000 mcg PO DAILY 05/02/16 04/22/17 [Vitamin B-12] Docusate [Colace] 100 mg PO BID 05/02/16 04/22/17 Omeprazole [PriLOSEC] 40 mg PO DAILY PRN 04/22/17 04/22/17 Warfarin [Coumadin] 7.5 mg PO FR 04/22/17 04/22/17 Allergies Allergy/AdvReac Type Severity Reaction Status Date / Time cat dander Allergy Itching Verified 04/22/17 17:59 pollen extracts Allergy Unknown Verified 04/22/17 17:59 gabapentin AdvReac dizzy Verified 04/22/17 17:59 pregabalin [From Lyrica] AdvReac dizzy Verified 04/22/17 17:59 Review of Systems ROS Statement: Those systems with pertinent positive or pertinent negative responses have been documented in the HPI. ROS Other: All systems not noted in ROS Statement are negative. Past Medical History Past Medical History: Hyperlipidemia, Hypertension Additional Past Medical History / Comment(s): [place], [place], intubated for over a week - ARDS leading to prolonged hospital stay History of Any Multi-Drug Resistant Organisms: None Reported Past Surgical History: Coronary Bypass/CABG, Heart Catheterization With Stent, Pacemaker, Tonsillectomy Additional Past Surgical History / Comment(s): 3 vessel bypass 2014, umbilical hernia repair, aortic valve replacement, cardiac stent x2 Past Anesthesia/Blood Transfusion Reactions: No Reported Reaction Date of Last Stent Placement:: 2010 Type of Cardiac Device: Permanent Pacemaker Device Placement Date:: 03/2014 Past Psychological History: No Psychological Hx Reported Smoking Status: Never smoker Past Alcohol Use History: Occasional Past Drug Use History: None Reported - Past Family History Daughter(s) History Unknown: Yes Family Medical History: Cancer Additional Family Medical History / Comment(s): BREAST Son(s) History Unknown: Yes Family Medical History: Cancer Additional Family Medical History / Comment(s): PANCREATIC Mother History Unknown: Yes Family Medical History: Cancer Additional Family Medical History / Comment(s): Breast cancer, at age 49 Father History Unknown: Yes Family Medical History: Myocardial Infarction ([place]) Additional Family Medical History / Comment(s): at age 60 d/t [place] General Exam Limitations: no limitations General appearance: alert, in no apparent distress Head exam: Present: atraumatic, normocephalic Eye exam: Present: normal appearance, PERRL Neck exam: Present: normal inspection. Absent: tenderness, meningismus Respiratory exam: Present: normal lung sounds bilaterally. Absent: respiratory distress Cardiovascular Exam: Present: regular rate, normal rhythm, systolic murmur GI/Abdominal exam: Present: soft, distended. Absent: tenderness, guarding Extremities exam: Present: normal inspection, normal capillary refill. Absent: pedal edema Neurological exam: Present: alert, oriented X3. Absent: CN II-XII intact Psychiatric exam: Present: normal affect, normal mood Skin exam: Present: warm, dry, intact. Absent: cyanosis, diaphoretic Course Vital Signs 04/22/17 04/22/17 17:04 18:37 Temperature 98 F Pulse Rate 80 78 Respiratory 18 18 Rate Blood Pressure 178/83 106/61 O2 Sat by Pulse 98 96 Oximetry EKG Findings - EKG Comments: EKG Findings:: EKG shows atrial sensed ventricular paced rhythm, rate of 67, ME interval 198, QRS duration 168, QTC 492, no signs of acute ischemia Medical Decision Making - Medical Decision Making 87-year-old male presenting with sharp left-sided chest pain. Each episode lasts just a second. Pain is atypical for coronary artery disease or angina. Patient has no pain while in the emergency department. Chest x-ray obtained, negative for acute findings. CBC within normal limits. INR is therapeutic. Troponin negative. CT angiography is obtained, this is negative for PE, negative for dissection. There is a 1.4 cm liver mass which was previously defined as cyst, radiology comments that this is less cystlike. Patient is informed of this and will follow-up with primary care physician. Patient's pain is atypical for coronary artery disease, he is well-appearing, he is eager for discharge. He will return with any worsening or changing symptoms. - Lab Data Result diagrams: 04/22/17 17:33 04/22/17 17:33 Lab Results 04/22/17 04/22/17 04/22/17 Range/Units 17:33 17:33 17:33 WBC 6.7 (3.8-10.6) k/uL RBC 5.08 (4.30-5.90) m/uL Hgb 15.1 (13.0-17.5) gm/dL Hct 45.2 (39.0-53.0) % MCV 89.1 (80.0-100.0) fL MCH 29.7 (25.0-35.0) pg MCHC 33.3 (31.0-37.0) g/dL RDW 13.6 (11.5-15.5) % Plt Count 175 (150-450) k/uL Neutrophils % 53 % Lymphocytes % 33 % Monocytes % 8 % Eosinophils % 3 % Basophils % 1 % Neutrophils # 3.6 (1.3-7.7) k/uL Lymphocytes # 2.2 (1.0-4.8) k/uL Monocytes # 0.5 (0-1.0) k/uL Eosinophils # 0.2 (0-0.7) k/uL Basophils # 0.0 (0-0.2) k/uL PT (9.0-12.0) sec INR (<1.2) APTT (22.0-30.0) sec Sodium 145 (137-145) mmol/L Potassium 4.2 (3.5-5.1) mmol/L Chloride 107 (98-107) mmol/L Carbon Dioxide 27 (22-30) mmol/L Anion Gap 11 mmol/L BUN 22 H (9-20) mg/dL Creatinine 1.10 (0.66-1.25) mg/dL Est GFR (MDRD) Af Amer >60 (>60 ml/min/1.73 sqM) Est GFR (MDRD) Non-Af >60 (>60 ml/min/1.73 sqM) Glucose 107 H (74-99) mg/dL Calcium 9.2 (8.4-10.2) mg/dL Magnesium 2.3 (1.6-2.3) mg/dL Total Bilirubin 1.2 (0.2-1.3) mg/dL AST 30 (17-59) U/L ALT 29 (21-72) U/L Alkaline Phosphatase 85 (38-126) U/L Total Creatine Kinase 129 (55-170) U/L CK-MB (CK-2) 1.9 (0.0-2.4) ng/mL CK-MB (CK-2) Rel Index 1.5 Troponin I <0.012 (0.000-0.034) ng/mL NT-Pro-B Natriuret Pep pg/mL Total Protein 7.4 (6.3-8.2) g/dL Albumin 4.1 (3.5-5.0) g/dL 04/22/17 04/22/17 Range/Units 17:33 17:33 WBC (3.8-10.6) k/uL RBC (4.30-5.90) m/uL Hgb (13.0-17.5) gm/dL Hct (39.0-53.0) % MCV (80.0-100.0) fL MCH (25.0-35.0) pg MCHC (31.0-37.0) g/dL RDW (11.5-15.5) % Plt Count (150-450) k/uL Neutrophils % % Lymphocytes % % Monocytes % % Eosinophils % % Basophils % % Neutrophils # (1.3-7.7) k/uL Lymphocytes # (1.0-4.8) k/uL Monocytes # (0-1.0) k/uL Eosinophils # (0-0.7) k/uL Basophils # (0-0.2) k/uL PT 22.3 H (9.0-12.0) sec INR 2.5 H (<1.2) APTT 30.2 H (22.0-30.0) sec Sodium (137-145) mmol/L Potassium (3.5-5.1) mmol/L Chloride (98-107) mmol/L Carbon Dioxide (22-30) mmol/L Anion Gap mmol/L BUN (9-20) mg/dL Creatinine (0.66-1.25) mg/dL Est GFR (MDRD) Af Amer (>60 ml/min/1.73 sqM) Est GFR (MDRD) Non-Af (>60 ml/min/1.73 sqM) Glucose (74-99) mg/dL Calcium (8.4-10.2) mg/dL Magnesium (1.6-2.3) mg/dL Total Bilirubin (0.2-1.3) mg/dL AST (17-59) U/L ALT (21-72) U/L Alkaline Phosphatase (38-126) U/L Total Creatine Kinase (55-170) U/L CK-MB (CK-2) (0.0-2.4) ng/mL CK-MB (CK-2) Rel Index Troponin I (0.000-0.034) ng/mL NT-Pro-B Natriuret Pep 195 pg/mL Total Protein (6.3-8.2) g/dL Albumin (3.5-5.0) g/dL Disposition Clinical Impression: Atypical chest pain Disposition: HOME SELF-CARE Condition: Good Instructions: Chest Pain (ED) Referrals: Rubens Membreno MD [Primary Care Provider] - 1-2 days Time of Disposition: 20:56
[2017-04-22 17:46] LABS: Basophils % (A) 1 %; Eosinophils # (A) 0.2 k/uL (0-0.7); Eosinophils % (A) 3 %; HCT 45.2 % (39.0-53.0); HGB 15.1 gm/dL (13.0-17.5); Lymphocytes # (A) 2.2 k/uL (1.0-4.8); Lymphocytes % (A) 33 %; MCH 29.7 pg (25.0-35.0); MCHC 33.3 g/dL (31.0-37.0); MCV 89.1 fL (80.0-100.0); Monocytes # (A) 0.5 k/uL (0-1.0); Monocytes % (A) 8 %; Neutrophils # (A) 3.6 k/uL (1.3-7.7); Neutrophils % (A) 53 %; Platelet Count 175 k/uL (150-450); RBC 5.08 m/uL (4.30-5.90); RDW 13.6 % (11.5-15.5); WBC 6.7 k/uL (3.8-10.6)
--- NOTE | 2017-04-22 17:51 | XR ---
EXAMINATION TYPE: XR chest 2V DATE OF EXAM: 04/22/2017 COMPARISON: 05/02/2016 INDICATION: Chest pain TECHNIQUE: Frontal and lateral views of the chest are obtained. FINDINGS: The heart size is normal. The pulmonary vasculature is normal. The lungs are clear. Pacemaker overlies left chest IMPRESSION: 1. No acute pulmonary process. 2. No significant interval change from 05/02/2016.
[2017-04-22 18:00] LABS: ALT 29 U/L (21-72); AST 30 U/L (17-59); Albumin 4.1 g/dL (3.5-5.0); Alkaline Phosphatase 85 U/L (38-126); Anion Gap 11 mmol/L; Blood Urea Nitrogen 22 mg/dL (9-20); Calcium 9.2 mg/dL (8.4-10.2); Carbon Dioxide 27 mmol/L (22-30); Chloride 107 mmol/L (98-107); Glucose 107 mg/dL (74-99); Potassium 4.2 mmol/L (3.5-5.1); Sodium 145 mmol/L (137-145); Total Bilirubin 1.2 mg/dL (0.2-1.3); Total Protein 7.4 g/dL (6.3-8.2)
[2017-04-22 18:02] LABS: Creatine Kinase 129 U/L (55-170)
[2017-04-22 18:05] LABS: INR 2.5 (<1.2); Partial Thromboplastin Time 30.2 sec (22.0-30.0); Prothrombin Time 22.3 sec (9.0-12.0)
[2017-04-22 18:15] LABS: Creatine Kinase MB 1.9 ng/mL (0.0-2.4); Troponin I <0.012 ng/mL (0.000-0.034)
[2017-04-22] MEDS ORDERED: RX INFO: IV CONTRAST WAS GIVEN 1 EACH MISC MISCELLANE PRN (19:01)
--- NOTE | 2017-04-22 20:49 | CT ---
CT CHEST FOR PULMONARY EMBOLISM. EXAMINATION TYPE: CT angio chest DATE OF EXAM: 04/22/2017 INDICATION: Patient complains of chest pain. CT DLP: 556 mGycm, Automated exposure control for dose reduction was used. CONTRAST: Patient injected with 100 mL of Omnipaque 350. COMPARISON: 05/10/2010 TECHNIQUE: CT of the chest is performed on a spiral scan at 2 mm thick sections. Study is performed with intravenous contrast timed for evaluation for pulmonary embolism. This will limit additional po rtions of the evaluation. 3-D MIP images reconstructed by the technologist are reviewed on the compu ter in the coronal and sagittal planes. FINDINGS: No persistent filling defects are evident to suggest an acute pulmonary embolism. No mediastinal or hilar adenopathy enlarged by CT criteria is evident. The ascending aorta diameter at the level of the main pulmonary artery is 3.8 cm. The main pulmonary artery diameter at the bifur cation is 2.2 cm. Lung windows are clear. There is a small hiatal hernia present. Limited CT sections are obtained through the upper abdomen. There is a 1.4 cm hypodensity within the medial right lobe liver. This is not a typical cyst. Follow-up is recommended. IMPRESSIONS: 1. No acute pulmonary embolism. 2. Small hiatal hernia. 3. 1.4 cm hypodensity within the liver at the location of a previous cyst. This has less cyst like qu alities on the current examination and monitoring is recommended.
[2017-04-22 20:56] VITALS: BP 153/79; PULSE 72
== END 2017-04-22 21:14 | disposition home or self-care (01) ==
LOC: EC 17:02
DX: R07.89 Other chest pain (principal); E78.5 Hyperlipidemia, unspecified; I10 Essential (primary) hypertension; I25.10 Atherosclerotic heart disease of native coronary artery without angina pectoris; G25.81 Restless legs syndrome; Z95.2 Presence of prosthetic heart valve; Z95.0 Presence of cardiac pacemaker; Z95.1 Presence of aortocoronary bypass graft; Z95.5 Presence of coronary angioplasty implant and graft; Z79.899 Other long term (current) drug therapy; Z79.01 Long term (current) use of anticoagulants; Z91.048 Other nonmedicinal substance allergy status; Z88.8 Allergy status to other drugs, medicaments and biological substances
CPT/HCPCS: 36415; 93005; 83880; 80053; 82550; 82553; 83735; 84484; 85025; 85610; 85730; 71046; 71275; 99285; Q9967

== ENCOUNTER → 2017-10-30 | Outpatient (CLI) | payer MEDICARE ==
[2017-10-30 11:43] LABS: Albumin 3.4 g/dL (3.5-5.0); Calcium 8.9 mg/dL (8.4-10.2); Potassium 4.3 mmol/L (3.5-5.1); Total Bilirubin 1.1 mg/dL (0.2-1.3); Total Protein 6.2 g/dL (6.3-8.2)
== END ==
LOC: LABWHC1 10:16
PROVIDERS: ATTEND Internal Medicine Interventional Cardiology
DX: E78.2 Mixed hyperlipidemia (principal)
CPT/HCPCS: 36415; 80053; 80061

== ENCOUNTER 2018-01-22 03:16 | Observation (INO) | payer MEDICARE ==
[2018-01-22] MEDS ORDERED: ASPIRIN 81 MG PO STA (03:31)
--- NOTE | 2018-01-22 03:36 | ED ---
Chest Pain HPI - General Chief Complaint: Chest Pain Stated Complaint: chest pain Time Seen by Provider: 01/22/18 03:30 Source: patient, family Mode of arrival: ambulatory Limitations: no limitations - History of Present Illness Initial Comments: Jason Liu is an 87-year-old gentleman with a past medical she reported he artery disease status post bypass as well as pacemaker placement. Patient presents the emergency department today for evaluation of chest pain. Patient reports that yesterday evening he had significant acid reflux-like symptoms, he took a Prilosec with no improvement in his symptoms. Patient reports that throughout the night he remained uncomfortable with discomfort radiating from his right chest to his left chest in the retrosternal area. Chest discomfort was not associated with any palpitations or shortness of breath. Patient does report intermittent episodes of diaphoresis but no lightheadedness or feeling like he would pass out. Patient does report he has a history of acid reflux and has been out of his Prilosec recently however he states that this feels different from his usual acid reflux. Patient states he attempted to drink some bubbly water to see if that would help because he thought this pain may be related to gas pain however he got no relief from that. At which time he decided to come to the ER for evaluation to ensure that this discomfort was not secondary to his heart. - Related Data Home Medications Medication Instructions Recorded Confirmed Atorvastatin [Lipitor] 40 mg PO HS 06/30/14 04/22/17 Metoprolol Tartrate [Lopressor] 25 mg PO HS 06/30/14 04/22/17 Warfarin [Coumadin] 5 mg PO SUMOTUWETHSA 01/01/16 04/22/17 rOPINIRole HCL [Requip] 2 mg PO BID 01/01/16 04/22/17 Cyanocobalamin (Vitamin B-12) 1,000 mcg PO DAILY 05/02/16 04/22/17 [Vitamin B-12] Docusate [Colace] 100 mg PO BID 05/02/16 04/22/17 Omeprazole [PriLOSEC] 40 mg PO DAILY PRN 04/22/17 04/22/17 Warfarin [Coumadin] 7.5 mg PO FR 04/22/17 04/22/17 Allergies Allergy/AdvReac Type Severity Reaction Status Date / Time cat dander Allergy Itching Verified 01/22/18 03:21 pollen extracts Allergy Unknown Verified 01/22/18 03:21 gabapentin AdvReac dizzy Verified 01/22/18 03:21 pregabalin [From Lyrica] AdvReac dizzy Verified 01/22/18 03:21 Review of Systems ROS Statement: Those systems with pertinent positive or pertinent negative responses have been documented in the HPI. ROS Other: All systems not noted in ROS Statement are negative. EKG Findings - EKG Comments: EKG Findings:: EKG obtained at 329am - Rate 79, atrial sensed and ventricular paced rhythm - rate 79, rhythm paced, no acute ST elevation or depressions. When compared to previous there is less ectopy, less QRS widening and no longer has QTc prolongation. Past Medical History Past Medical History: Hyperlipidemia, Hypertension Additional Past Medical History / Comment(s): [place], RLS, intubated for over a week - ARDS leading to prolonged hospital stay History of Any Multi-Drug Resistant Organisms: None Reported Past Surgical History: Coronary Bypass/CABG, Heart Catheterization With Stent, Pacemaker, Tonsillectomy Additional Past Surgical History / Comment(s): 3 vessel bypass 2014, umbilical hernia repair, aortic valve replacement, cardiac stent x2 Past Anesthesia/Blood Transfusion Reactions: No Reported Reaction Date of Last Stent Placement:: 2010 Type of Cardiac Device: Permanent Pacemaker Device Placement Date:: 03/2014 Past Psychological History: No Psychological Hx Reported Smoking Status: Never smoker Past Alcohol Use History: Occasional Past Drug Use History: None Reported - Past Family History Daughter(s) History Unknown: Yes Family Medical History: Cancer Additional Family Medical History / Comment(s): BREAST Son(s) History Unknown: Yes Family Medical History: Cancer Additional Family Medical History / Comment(s): PANCREATIC Mother History Unknown: Yes Family Medical History: Cancer Additional Family Medical History / Comment(s): Breast cancer, at age 49 Father History Unknown: Yes Family Medical History: Myocardial Infarction ([place]) Additional Family Medical History / Comment(s): at age 60 d/t [place] General Exam - General Exam Comments Initial Comments: Physical Exam GENERAL: Patient is well-developed and well-nourished. Patient is nontoxic and well- hydrated and is in no distress. HENT: Normocephalic, Atraumatic. EYES: PERRL, EOMI PULMONARY: Unlabored respirations. No audible rales rhonchi or wheezing was noted. CARDIOVASCULAR: There is a regular rate and rhythm without any murmurs gallops or rubs. Well-healed midline surgical incision consistent with history of CABG ABDOMEN: Soft and nontender with normal bowel sounds. SKIN: Skin is clear with no lesions or rashes and otherwise unremarkable. : Deferred NEUROLOGIC: Patient is alert and oriented x3. Moving all extremities spontaneously MUSCULOSKELETAL: Normal extremities with adequate strength and full range of motion. No lower extremity swelling or edema. No calf tenderness. PSYCHIATRIC: Normal psychiatric evaluation. Limitations: no limitations Limitations: no limitations Course Vital Signs 01/22/18 01/22/18 01/22/18 03:20 03:30 04:00 Temperature 98.2 F Pulse Rate 86 81 77 Pulse Rate [ 75 Supine Legal Billing Clerk] Respiratory 20 17 18 Rate Blood Pressure 126/83 131/83 124/79 O2 Sat by Pulse 99 100 98 Oximetry 01/22/18 01/22/18 01/22/18 04:30 05:00 05:15 Temperature Pulse Rate 73 71 75 Pulse Rate [ Supine Legal Billing Clerk] Respiratory 20 20 18 Rate Blood Pressure 107/79 112/66 68/57 O2 Sat by Pulse 94 L 94 L Oximetry 01/22/18 01/22/18 01/22/18 05:30 06:00 06:48 Temperature 98.6 F Pulse Rate 68 Pulse Rate [ Supine Legal Billing Clerk] Respiratory 19 17 Rate Blood Pressure 79/57 O2 Sat by Pulse 96 Oximetry Chest Pain [facility] Patient was seen and evaluated, history is obtained from the patient and at bedside An 87-year-old gentleman with known coronary artery disease experiencing what he believed to be acid reflux throughout the night she did not respond to his usual treatment with Prilosec and carbonated water. Cardiac workup was ordered EKG has no skin changes Labs were reviewed, troponin is not elevated however patient's INR is noted to be supratherapeutic Sublingual nitros giving, patient subsequently became profoundly hypotensive, though he denied any symptoms. He did report mild improvement in his discomfort. Time I feel the patient warrants admission to the hospital for further evaluation by cardiology. Patient was discussed with his primary care physician Dr. Hsu who agrees with plan for admission with consult to cardiology. Admission orders placed. Disposition Clinical Impression: Chest pain Disposition: ADMITTED IP TO THIS HOSP Condition: Good
[2018-01-22 04:01] LABS: Basophils % (A) 0 %; Eosinophils # (A) 0.2 k/uL (0-0.7); Eosinophils % (A) 2 %; HCT 48.6 % (39.0-53.0); HGB 15.9 gm/dL (13.0-17.5); Lymphocytes # (A) 2.1 k/uL (1.0-4.8); Lymphocytes % (A) 27 %; MCH 29.5 pg (25.0-35.0); MCHC 32.7 g/dL (31.0-37.0); Mean Platelet Volume 8.7; Monocytes # (A) 0.6 k/uL (0-1.0); Monocytes % (A) 8 %; Neutrophils # (A) 4.7 k/uL (1.3-7.7); Neutrophils % (A) 61 %; Platelet Count 169 k/uL (150-450); RDW 14.6 % (11.5-15.5); WBC 7.8 k/uL (3.8-10.6)
[2018-01-22 04:15] LABS: INR 4.6 (<1.2); Partial Thromboplastin Time 33.7 sec (22.0-30.0); Prothrombin Time 41.5 sec (9.0-12.0)
[2018-01-22 04:19] LABS: Albumin 3.8 g/dL (3.5-5.0); Calcium 9.8 mg/dL (8.4-10.2); Magnesium 2.3 mg/dL (1.6-2.3); Potassium 4.2 mmol/L (3.5-5.1); Total Bilirubin 1.3 mg/dL (0.2-1.3); Total Protein 6.7 g/dL (6.3-8.2)
[2018-01-22 04:22] LABS: Creatine Kinase 73 U/L (55-170)
[2018-01-22 04:35] LABS: Creatine Kinase MB 1.6 ng/mL (0.0-2.4); Troponin I <0.012 ng/mL (0.000-0.034)
--- NOTE | 2018-01-22 04:35 | XR ---
EXAMINATION TYPE: XR chest 2V DATE OF EXAM: 01/22/2018 COMPARISON: 04/22/2017 HISTORY: Chest pain TECHNIQUE: Frontal and lateral views of the chest are obtained. FINDINGS: Heart is normal. Lungs are clear of consolidation. There are sternal wires. There are ches t leads. There is left axillary pacemaker with the lead tips in the right ventricle. There is no pleu ral effusion. Thoracic aorta is atheromatous. IMPRESSION: No active cardiopulmonary disease. No change.
[2018-01-22] MEDS ORDERED: NITROGLYCERIN SL TABS 0.4 MG TAB SUBLINGUAL PRN (04:44)
[2018-01-22] MEDS ORDERED: PANTOPRAZOLE 40 MG TABLET PO PRN (06:12)
--- NOTE | 2018-01-22 08:35 | P.CRDCN ---
History of Present Illness Consult date: 01/22/18 Requesting physician: Lalo Hsu Jr Consult reason: chest pain Chief complaint: Chest pain History of present illness: This is an 87-year-old gentleman who follows regularly with Dr. Arceo in the office. He has a known history of coronary artery disease with prior coronary artery bypass grafting surgery, he underwent a saphenous vein graft to the OM1 and 2, saphenous vein graft to the RCA, history also of tissue aortic valve in 2014. Prior to that the patient did undergo stent placement of the RCA in 2009 and 2010. He also has history of hypertension, hyperlipidemia, peripheral vascular disease, prior pacemaker implantation, paroxysmal atrial fibrillation. Most recent heart catheterization was performed in April 2016 where the patient was found to have a subtotally occluded mid and distal RCA as well as a first obtuse marginal branch. Mild to moderate disease in the proximal LAD. Patent saphenous vein graft to the right coronary artery and patent saphenous vein graft to the circumflex. He was recommended at that time to continue medical therapy. He also had an echocardiogram with Doppler study performed on that visit which revealed an ejection fraction of 40-45% with inferior septal hypokinesia. According to the patient, he's been doing fairly well at home, he has been quite physically active without any problems. He does state however that he has had not been taking his Prilosec for about 2 weeks, he recently had a refill on that. Last evening he ate fried aches and wedge, took all of his pills including the Prilosec. After going to bed, patient states he awoke with midsternal chest pain that radiated across his chest. He described it as a heavy sensation. He denied any associated shortness of breath, no diaphoresis or nausea. Pain was constant in nature until he arrived to the emergency room, approximately after one hour here, the pain has subsided. Chest x-ray on arrival here did not reveal any active cardiopulmonary disease. EKG shows of atrial sensed ventricular paced rhythm with no acute changes. Blood pressure on arrival here 126/80 with a heart rate in the 80s, 99% on room air. Blood pressure was running low earlier this morning, in the range of 70 systolic, at the time of my examination his blood pressure was 124/60 with a heart rate in the 70s. White blood cell count 7.8, he hemoglobin 15.9, platelet count 169. Pro time 41.5, INR 4.6, sodium 143, potassium 4.2, BUN 19, creatinine 1.0. Magnesium 2.3. Initial troponin 0.012, BNP level 158. At the time of my examination this morning, patient is currently chest pain-free. Past Medical History Past Medical History: Hyperlipidemia, Hypertension Additional Past Medical History / Comment(s): [place], RLS, intubated for over a week - ARDS leading to prolonged hospital stay History of Any Multi-Drug Resistant Organisms: None Reported Past Surgical History: Coronary Bypass/CABG, Heart Catheterization With Stent, Pacemaker, Tonsillectomy Additional Past Surgical History / Comment(s): 3 vessel bypass 2014, umbilical hernia repair, aortic valve replacement, cardiac stent x2 Past Anesthesia/Blood Transfusion Reactions: No Reported Reaction Date of Last Stent Placement:: 2010 Type of Cardiac Device: Permanent Pacemaker Device Placement Date:: 03/2014 Past Psychological History: No Psychological Hx Reported Smoking Status: Never smoker Past Alcohol Use History: Occasional Past Drug Use History: None Reported - Past Family History Daughter(s) History Unknown: Yes Family Medical History: Cancer Additional Family Medical History / Comment(s): BREAST Son(s) History Unknown: Yes Family Medical History: Cancer Additional Family Medical History / Comment(s): PANCREATIC Mother History Unknown: Yes Family Medical History: Cancer Additional Family Medical History / Comment(s): Breast cancer, at age 49 Father History Unknown: Yes Family Medical History: Myocardial Infarction ([place]) Additional Family Medical History / Comment(s): at age 60 d/t [place] Medications and Allergies Home Medications Medication Instructions Recorded Confirmed Type Atorvastatin [Lipitor] 40 mg PO HS 06/30/14 04/22/17 History Metoprolol Tartrate [Lopressor] 25 mg PO HS 06/30/14 04/22/17 History Warfarin [Coumadin] 5 mg PO SUMOTUWETHSA 01/01/16 04/22/17 History rOPINIRole HCL [Requip] 2 mg PO BID 01/01/16 04/22/17 History Cyanocobalamin (Vitamin B-12) 1,000 mcg PO DAILY 05/02/16 04/22/17 History [Vitamin B-12] Docusate [Colace] 100 mg PO BID 05/02/16 04/22/17 History Omeprazole [PriLOSEC] 40 mg PO DAILY PRN 04/22/17 04/22/17 History Warfarin [Coumadin] 7.5 mg PO FR 04/22/17 04/22/17 History Allergies Allergy/AdvReac Type Severity Reaction Status Date / Time cat dander Allergy Itching Verified 01/22/18 03:21 pollen extracts Allergy Unknown Verified 01/22/18 03:21 gabapentin AdvReac dizzy Verified 01/22/18 03:21 pregabalin [From Lyrica] AdvReac dizzy Verified 01/22/18 03:21 Physical Exam Vitals: Vital Signs Temp Pulse Pulse Resp BP BP Pulse Ox 01/22/18 07:02 97.6 F 73 16 125/63 96 01/22/18 06:48 98.6 F 01/22/18 06:00 17 01/22/18 05:30 68 19 79/57 96 01/22/18 05:15 75 18 68/57 01/22/18 05:00 71 20 112/66 94 L 01/22/18 04:30 73 20 107/79 94 L 01/22/18 04:00 77 18 124/79 98 01/22/18 03:30 81 75 17 131/83 100 01/22/18 03:20 98.2 F 86 20 126/83 99 Intake and Output 01/21/18 01/22/18 01/22/18 22:59 06:59 14:59 Intake Total 0 Balance 0 Intake: Oral 0 Other: # Voids 1 Weight 97.522 kg 102.5 kg PHYSICAL EXAMINATION: GENERAL: 87-year-old gentleman in no acute distress at the time of my examination HEENT: Head is atraumatic, normocephalic. Pupils equal, round. Sclera anicteric. Conjunctiva are clear. Mucous membranes of the mouth are moist. Neck is supple. There is no elevated jugular venous pressure. No carotid bruit is heard. HEART EXAMINATION: Heart S1 S2 1 systolic ejection murmur is heard. CHEST EXAMINATION: Lungs are clear to auscultation and precussion. No chest wall tenderness is noted on palpation or with deep breathing. ABDOMEN: Soft, nontender. Bowel sounds are heard. No organomegaly noted. EXTREMITIES: 2+ peripheral pulses with no evidence of peripheral edema and no calf tenderness noted. NEUROLOGIC patient is awake, alert and oriented 3. . Results 01/22/18 03:40 01/22/18 03:40 Cardiac Enzymes 01/22/18 01/22/18 Range/Units 03:40 03:40 AST 32 (17-59) U/L CK-MB (CK-2) 1.6 (0.0-2.4) ng/mL Troponin I <0.012 (0.000-0.034) ng/mL Coagulation 01/22/18 Range/Units 03:40 PT 41.5 H (9.0-12.0) sec APTT 33.7 H (22.0-30.0) sec CBC 01/22/18 Range/Units 03:40 WBC 7.8 (3.8-10.6) k/uL RBC 5.40 (4.30-5.90) m/uL Hgb 15.9 (13.0-17.5) gm/dL Hct 48.6 (39.0-53.0) % Plt Count 169 (150-450) k/uL Comprehensive Metabolic Panel 01/22/18 Range/Units 03:40 Sodium 143 (137-145) mmol/L Potassium 4.2 (3.5-5.1) mmol/L Chloride 107 (98-107) mmol/L Carbon Dioxide 28 (22-30) mmol/L BUN 19 (9-20) mg/dL Creatinine 1.07 (0.66-1.25) mg/dL Glucose 121 H (74-99) mg/dL Calcium 9.8 (8.4-10.2) mg/dL AST 32 (17-59) U/L ALT 39 (21-72) U/L Alkaline Phosphatase 89 (38-126) U/L Total Protein 6.7 (6.3-8.2) g/dL Albumin 3.8 (3.5-5.0) g/dL Current Medications Generic Name Dose Route Start Last Admin Trade Name Freq PRN Reason Stop Dose Admin Aspirin 325 mg 01/23/18 09:00 Aspirin PO DAILY [facility] Atorvastatin Calcium 40 mg 01/22/18 21:00 Lipitor PO HS [facility] Metoprolol Tartrate 25 mg 01/22/18 21:00 Lopressor PO HS [facility] Nitroglycerin 0.4 mg 01/22/18 04:44 01/22/18 05:06 Nitrostat SUBLINGUAL 0.4 mg Q5M PRN Administration Chest Pain Pantoprazole Sodium 40 mg 01/22/18 06:12 Protonix PO DAILY PRN heartburn/stomach Intake and Output 01/21/18 01/22/18 01/22/18 22:59 06:59 14:59 Intake Total 0 Balance 0 Intake: Oral 0 Other: # Voids 1 Weight 97.522 kg 102.5 kg Patient Weight 01/23/18 06:59 Weight 102.5 kg 01/22/18 03:40 01/22/18 03:40 EKG Interpretations (text) EKG shows atrial sensed V paced rhythm with no acute changes. Assessment and Plan Plan: Assessment and plan #1 chest discomfort with some atypical features for acute coronary syndrome. Initial troponin 0.012. EKG shows a sensed V paced rhythm with no acute changes. #2 known history of coronary artery disease with prior bypass surgery, prior to his bypass patient did have stent placements. Most recent cardiac catheterization was performed in April of last year at which time the patient was found to have a subtotally occluded mid and distal RCA as well as first obtuse marginal branch. Mild to moderate disease in the proximal LAD. Patent saphenous vein graft to the right coronary artery and patent saphenous vein graft to the circumflex, medical therapy was advised at that time. #3 history of tissue aortic valve replacement in 2014 #4 prior pacemaker implantation #5 hypertension #6 hyperlipidemia #7 PVD #8 paroxysmal atrial fibrillation, on Coumadin for anticoagulation, INR 4.6. Plan We will obtain an echocardiogram with Doppler study. We will also obtain 2 subsequent troponins. Hold Coumadin today. Decrease aspirin 81 mg daily. Resume Lipitor, continue metoprolol, and omeprazole. Patient has been advised that he may need to undergo stress testing for further evaluation. Further recommendations will be based on these findings and the patient's clinical course. DNP note has been reviewed, I agree with a documented findings and plan of care. Patient was seen and examined.
[2018-01-22 09:24] LABS: Creatine Kinase 55 U/L (55-170)
[2018-01-22 09:38] LABS: Creatine Kinase MB 1.1 ng/mL (0.0-2.4); Troponin I <0.012 ng/mL (0.000-0.034)
[2018-01-22 10:53] VITALS: RESP 18
[2018-01-22] MEDS ORDERED: CAFFEINE CITRATE 60 MG/3 ML VIAL IV PRN (11:10)
[2018-01-22] MEDS ORDERED: REGADENOSON 0.4 MG/5 ML SYRINGE IV ONE (11:10)
[2018-01-22] MEDS ORDERED: guaiFENesin 600 MG TABLET.ER PO PRN (11:54)
[2018-01-22] MEDS ORDERED: IPRATROPIUM-ALBUTEROL 3 ML NEB INHALATION PRN (13:00)
--- NOTE | 2018-01-22 14:25 | ECHOF ---
Referral Reason:chest pain MEASUREMENTS -------- HEIGHT: 180.3 cm WEIGHT: 102.1 kg BP: RVIDd: 3.2 cm (< 3.3) IVSd: 1.1 cm (0.6 - 1.1) LVIDd: 2.9 cm (3.9 - 5.3) LVPWd: 1.5 cm (0.6 - 1.1) IVSs: 1.7 cm LVIDs: 2.0 cm LVPWs: 1.8 cm Ao Diam: 2.7 cm (2.0 - 3.7) LA Diam: 4.3 cm (2.7 - 3.8) MV EXCURSION: 11.453 mm (> 18.000) MV EF SLOPE: 40 mm/s (70 - 150) EPSS: 0.6 cm MV E Taras: 1.42 m/s MV DecT: 156 ms MV A Taras: 0.40 m/s MV E/A Ratio: 3.57 AV maxP.49 mmHg AV meanP.61 mmHg RAP: 5.00 mmHg RVSP: 29.40 mmHg FINDINGS -------- Pacerwire seen in RV and RA. This was a technically difficult study with suboptimal views. The left ventricular size is normal. There is mild concentric left ventricular hypertrophy. Overa ll left ventricular systolic function is normal with, an EF between 55 - 60 %. There is paradoxical /dysynergic septal motion consistent with post-operative status. The right ventricle is normal in size and function. The left atrium is mildly dilated. The right atrial size is normal. Lumason used Peak/mean gradient across the Aortic Valve is 8.49mmHg / 5.61mmHg. Normally functioning bioprosthet ic valve. The mitral valve leaflets are mildly thickened. Mild mitral regurgitation is present. Mild tricuspid regurgitation present. There is no evidence of pulmonary hypertension. The right v entricular systolic pressure, as measured by Doppler, is 29.40mmHg. There is no pulmonic regurgitation present. The aortic root size is normal. There is no pericardial effusion. CONCLUSIONS -------- 1. Pacerwire seen in RV and RA. 2. This was a technically difficult study with suboptimal views. 3. The left ventricular size is normal. 4. There is mild concentric left ventricular hypertrophy. 5. Overall left ventricular systolic function is normal with, an EF between 55 - 60 %. 6. There is paradoxical/dysynergic septal motion consistent with post-operative status. 7. The left atrium is mildly dilated. 8. Lumason used 9. Peak/mean gradient across the Aortic Valve is 8.49mmHg / 5.61mmHg. 10. Normally functioning bioprosthetic valve. 11. The mitral valve leaflets are mildly thickened. 12. Mild mitral regurgitation is present. 13. Mild tricuspid regurgitation present. 14. There is no evidence of pulmonary hypertension. 15. There is no pulmonic regurgitation present. 16. The aortic root size is normal. 17. There is no pericardial effusion. CMM OPERATOR: Alicia Dobbs RDCS
--- NOTE | 2018-01-22 14:37 | P.HPIM ---
History of Present Illness H&P Date: 01/22/18 Chief Complaint: Chest pain 87-year-old male with a past medical history significant for coronary artery disease with previous CABG: saphenous vein graft to the OM1, OM2, and RCA and aortic valve replacement, hypertension, hyperlipidemia, atrial fib, and pacemaker insertion, who presented to the emergency room with a chief complaint of chest pain. Patient states he began having chest pain last night in the middle of the night. He is prescribed Prilosec for GERD but reports he has not been taking it. He thought the pain was related to his heartburn but after taking medication, the pain persisted so he decided to come to the ER for further evaluation. He denies SOB. Denies cough, congestion, or sputum production. Denies nausea or vomiting. Denies lightheadedness or dizziness. Denies change in bowel or bladder habits. Denies fever or chills. Patient had a cardiac cath performed in April 2016 revealing subtotally occluded mid and distal RCA as well as a first obtuse marginal branch. Mild to moderate disease in the proximal LAD. Patent saphenous vein graft to the right coronary artery and patent saphenous vein graft to the circumflex. Medical management was recommended. Echo from 2017 revealed ejection fraction of 40-45% and trace tricuspid regurgitation. Chest x-ray completed in the emergency room was negative for an acute cardio pulmonary process. Laboratory data upon admission revealed white count 7.8. Hemoglobin 15.9. Platelet count 169. Sodium 143. Potassium 4.2. BUN 19. Creatinine 1.07. Glucose 121. BNP 158. Troponin negative 2. INR was supratherapeutic at 4.6. Coumadin been placed on hold. The patient was admitted to the hospital under the care of Dr. Hsu. Consultations were placed to cardiology. REVIEW OF SYSTEMS: Those systems with pertinent positive or pertinent negative responses have been documented in the HPI PHYSICAL EXAM: GENERAL: This is a 87-year-old male in no apparent distress at the time of examination. Pleasant and cooperative. HEENT: Head is atraumatic, normocephalic. Pupils are equal, round, and reactive to light. Sclerae anicteric. Conjunctivae are clear. Mucus membranes of the mouth are moist. Neck is supple. RESPIRATORY: Clear to auscultation. No wheezes, rales, or rhonchi. No use of accessory muscles. Patient maintaining oxygen saturation greater than 92%. No chest wall tenderness is noted on palpation or with deep breathing. CARDIOVASCULAR: Regular rate and rhythm. S1 and S2 noted. Systolic murmur auscultated. No JVD noted. No S3 or S4 noted. GASTROINTESTINAL: No distention noted. Abdomen soft and round. Normal active bowel sounds auscultated x 4 quadrants. No pain or tenderness noted upon palpation. INTEGUMENTARY: No cyanosis. No jaundice. No rashes noted. No cellulitis noted. EXTREMITIES: 2+ peripheral pulses. No evidence of peripheral edema. No calf tenderness noted. NEUROLOGIC: Cranial nerves II-XII intact. PSYCHIATRIC: Awake, alert, and oriented X 3. Appropriate affect. Intact judgement and insight. ASSESSMENT: Chest pain, present on admission, troponin negative x2 Coronary artery disease History of CABG: saphenous vein graft to the OM1, OM2, and RCA and aortic valve replacement, 2014 History of stent x 2 History of ARDS with trach and PEG post CABG Hyperlipidemia Hypertension Paroxysmal atrial fibrillation, on long-term anticoagulation with Coumadin Supratherapeutic INR, 4.6 on admission Permanent pacemaker insertion, 2014 Obesity: BMI 30.6 PLAN: Cardiology on consult. Appreciate recommendations and input Patient scheduled for stress test today Hold Coumadin. Daily INR. Echo ordered. Await results. Home meds as appropriate Monitor labs GI prophylaxis: Protonix 40 mg PO Daily DVT prophylaxis: On hold secondary to elevated INR Monitor vital signs and address as appropriate Discharge planning: Patient to return home when stable Further recommendations pending patient's course Nurse practitioner note has been reviewed by physician. Signing provider agrees with the documented findings, assessment, and plan of care. Past Medical History Past Medical History: Atrial Fibrillation, Coronary Artery Disease (CAD), Chest Pain / Angina, Heart Failure, Hearing Disorder / Deafness, Hyperlipidemia, Hypertension, Vascular Disorder Additional Past Medical History / Comment(s): Paroxysmal Afib, A/V dissociation with pacer, PVD, RLS, 2014 ARDS during hospitalization for CABG/AVR required extended hospitalization-trach/vent and peg, bronchitis, diverticular disease, [place] bilaterally. 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 Past Anesthesia/Blood Transfusion Reactions: No Reported Reaction Date of Last Stent Placement:: 2010 Type of Cardiac Device: Permanent Pacemaker Device Placement Date:: 03/2014 Smoking Status: Never smoker - Past Family History Daughter(s) History Unknown: Yes Family Medical History: Cancer Additional Family Medical History / Comment(s): BREAST Son(s) History Unknown: Yes Family Medical History: Cancer Additional Family Medical History / Comment(s): PANCREATIC Mother History Unknown: Yes Family Medical History: Cancer Additional Family Medical History / Comment(s): Breast cancer- of this at age 49 Father History Unknown: Yes Family Medical History: Myocardial Infarction (NE) Additional Family Medical History / Comment(s): at age 60 d/t NE Medications and Allergies Home Medications Medication Instructions Recorded Confirmed Type Atorvastatin [Lipitor] 40 mg PO HS 06/30/14 01/22/18 History Metoprolol Tartrate [Lopressor] 50 mg PO HS 06/30/14 01/22/18 History Warfarin [Coumadin] 5 mg PO SUMOTUWETHSA 01/01/16 01/22/18 History rOPINIRole HCL [Requip] 2 mg PO BID 01/01/16 01/22/18 History Docusate [Colace] 100 mg PO BID 05/02/16 01/22/18 History Omeprazole [PriLOSEC] 40 mg PO DAILY PRN 04/22/17 01/22/18 History Warfarin [Coumadin] 7.5 mg PO FR 04/22/17 01/22/18 History Fluticasone Nasal [place] [Flonase 1 spray EA NOSTRIL DAILY 01/22/18 01/22/18 History Nasal [place]] Fluticasone/Vilanterol [Breo 1 puff INHALATION DAILY 01/22/18 01/22/18 History Ellipta 200-25 Mcg INH] guaiFENesin [Mucinex] 600 mg PO Q12HR PRN 01/22/18 01/22/18 History Allergies Allergy/AdvReac Type Severity Reaction Status Date / Time cat dander Allergy Itching Verified 01/22/18 09:44 pollen extracts Allergy Unknown Verified 01/22/18 09:44 gabapentin AdvReac dizzy Verified 01/22/18 09:44 pregabalin [From Lyrica] AdvReac dizzy Verified 01/22/18 09:44 Physical Exam Vitals: Vital Signs Temp Pulse Pulse Pulse Resp BP BP 01/22/18 08:35 97.7 F 81 18 123/60 01/22/18 07:02 97.6 F 73 16 125/63 01/22/18 06:48 98.6 F 01/22/18 06:00 17 01/22/18 05:30 68 19 79/57 01/22/18 05:15 75 18 68/57 01/22/18 05:00 71 20 112/66 01/22/18 04:30 73 20 107/79 01/22/18 04:00 77 18 124/79 01/22/18 03:30 81 75 17 131/83 01/22/18 03:20 98.2 F 86 20 126/83 Pulse Ox 01/22/18 08:35 94 L 01/22/18 07:02 96 01/22/18 06:48 01/22/18 06:00 01/22/18 05:30 96 01/22/18 05:15 01/22/18 05:00 94 L 01/22/18 04:30 94 L 01/22/18 04:00 98 01/22/18 03:30 100 01/22/18 03:20 99 Intake and Output 01/21/18 01/22/18 01/22/18 22:59 06:59 14:59 Intake Total 0 Balance 0 Intake: Oral 0 Other: # Voids 1 Weight 97.522 kg 102.5 kg Results CBC & Chem 7: 01/22/18 03:40 01/22/18 03:40 Labs: Abnormal Lab Results - Last 24 Hours (Table) 01/22/18 01/22/18 Range/Units 03:40 03:40 PT 41.5 H (9.0-12.0) sec INR 4.6 H (<1.2) APTT 33.7 H (22.0-30.0) sec Glucose 121 H (74-99) mg/dL Thrombosis Risk Factor Assmnt - Choose All That Apply Any of the Below Risk Factors Present?: Yes Each Factor Represents 1 point: Obesity (BMI >25) Other Risk Factors: Yes Each Risk Factor Represents 3 Points: Age 75 years or older Other congenital or acquired thrombophilia - If yes, enter type in comment: No Thrombosis Risk Factor Assessment Total Risk Factor Score: 4 Thrombosis Risk Factor Assessment Level: Moderate Risk
--- NOTE | 2018-01-22 15:33 | EST ---
EXERCISE STRESS AGE: 87 SEX: M HT: 6'0" WT: 225 PROTOCOL: Lexiscan Cardiolite Stress Test HEART RATE REST: 77 BLOOD PRESSURE REST: 160/83 MAXIMUM HEART RATE ACHIEVED: 101 MAXIMUM BLOOD PRESSURE: 160/83 INDICATIONS: Chest pain. CLINICAL INFORMATION: Baseline rhythm is sinus mechanism, rate of 77. Evidence of ventricular pacing. Baseline blood pressure 160/83 mmHg. Patient received injection of Lexiscan. Electrocardiographic monitoring revealed no evidence of diagnostic ischemic ST deviation. Cardiolite was injected per protocol. CONCLUSION: 1. Nondiagnostic electrocardiograph stress testing. 2. Nuclear images will be reported separately. MMODL / IJN: [id number] /
--- NOTE | 2018-01-22 15:45 | NM ---
EXAMINATION TYPE: NM stress lexiscan cardiolite DATE OF EXAM: 01/22/2018 COMPARISON: Prior nuclear medicine myocardial SPECT dated 01/02/2016 HISTORY: Chest pain TECHNIQUE: After the intravenous administration of 10.11 mCi Tc 99m Sestamibi - Cardiolite resting S PECT images acquired 45 minutes post injection. The patient received 0.4mg Lexiscan, 25.2 mCi Tc 99m Sestamibi - Stress images obtained [address] injection FINDINGS: Review of stress and rest SPECT images demonstrates decreased uptake along the septum towards the bas e of the heart on stress as compared to rest images, there may be some decreased uptake on the latera l wall inferiorly on stress as compared to rest images also towards the base of the heart. Gated lamar lysis shows normal wall motion with an estimated left ventricular ejection fraction of 60 %. 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
[2018-01-22 16:11] LABS: Creatine Kinase 66 U/L (55-170)
[2018-01-22 16:22] LABS: Creatine Kinase MB 1.1 ng/mL (0.0-2.4); Troponin I <0.012 ng/mL (0.000-0.034)
[2018-01-22] MEDS ORDERED: METOPROLOL TARTRATE 25 MG TAB PO SCH (21:00)
[2018-01-22] MEDS ORDERED: ATORVASTATIN 40 MG TAB PO SCH (21:00)
[2018-01-22] MEDS: DOCUSATE 100 MG CAP PO SCH (23:46)
[2018-01-23 07:20] LABS: INR 3.7 (<1.2); Prothrombin Time 35.9 sec (9.0-12.0)
[2018-01-23 07:24] LABS: Cholesterol 140 mg/dL (<200); HDL Cholesterol 30 mg/dL (40-60); LDL Cholesterol,Calculated 81 mg/dL (0-99); Triglycerides 143 mg/dL (<150)
[2018-01-23] MEDS ORDERED: PANTOPRAZOLE 40 MG TABLET PO SCH (07:30)
[2018-01-23] MEDS ORDERED: ASPIRIN 325 MG TAB PO SCH (09:00)
[2018-01-23] MEDS ORDERED: ASPIRIN 81 MG PO SCH (09:00)
[2018-01-23] MEDS ORDERED: FLUTICASONE 50MCG/SPRAY NASAL 16GM EA NOSTRIL SCH (09:00)
[2018-01-23] MEDS: DOCUSATE 100 MG CAP PO SCH (10:07)
[2018-01-23 13:41] VITALS: BP 114/63; PULSE 83; TEMP 98.2
[2018-01-23 14:31] VITALS: BMI 30.6
--- NOTE | 2018-01-23 14:50 | P.PN ---
Subjective Progress Note Date: 01/23/18 This is an 87-year-old gentleman who follows regularly with Dr. Arceo in the office. He has a known history of coronary artery disease with prior coronary artery bypass grafting surgery, he underwent a saphenous vein graft to the OM1 and 2, saphenous vein graft to the RCA, history also of tissue aortic valve in 2014. Prior to that the patient did undergo stent placement of the RCA in 2009 and 2010. He also has history of hypertension, hyperlipidemia, peripheral vascular disease, prior pacemaker implantation, paroxysmal atrial fibrillation. Most recent heart catheterization was performed in April 2016 where the patient was found to have a subtotally occluded mid and distal RCA as well as a first obtuse marginal branch. Mild to moderate disease in the proximal LAD. Patent saphenous vein graft to the right coronary artery and patent saphenous vein graft to the circumflex. He was recommended at that time to continue medical therapy. He also had an echocardiogram with Doppler study performed on that visit which revealed an ejection fraction of 40-45% with inferior septal hypokinesia. According to the patient, he's been doing fairly well at home, he has been quite physically active without any problems. He does state however that he has had not been taking his Prilosec for about 2 weeks, he recently had a refill on that. Last evening he ate fried aches and wedge, took all of his pills including the Prilosec. After going to bed, patient states he awoke with midsternal chest pain that radiated across his chest. He described it as a heavy sensation. He denied any associated shortness of breath, no diaphoresis or nausea. Pain was constant in nature until he arrived to the emergency room, approximately after one hour here, the pain has subsided. Chest x-ray on arrival here did not reveal any active cardiopulmonary disease. EKG shows of atrial sensed ventricular paced rhythm with no acute changes. Blood pressure on arrival here 126/80 with a heart rate in the 80s, 99% on room air. Blood pressure was running low earlier this morning, in the range of 70 systolic, at the time of my examination his blood pressure was 124/60 with a heart rate in the 70s. White blood cell count 7.8, he hemoglobin 15.9, platelet count 169. Pro time 41.5, INR 4.6, sodium 143, potassium 4.2, BUN 19, creatinine 1.0. Magnesium 2.3. Initial troponin 0.012, BNP level 158. At the time of my examination this morning, patient is currently chest pain-free. 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 The results were reviewed by Dr. Arceo who felt that the reversibility was in an area of a totally occluded circumflex. Patient had no further chest pain hemodynamically he is stable. He may be able to be discharged home today from cardiology's perspective to follow-up with Dr. Arceo in the office post discharge. Objective - Vital Signs Vital signs: Vital Signs Temp 98.2 F 01/23/18 11:40 Pulse 83 01/23/18 11:40 Resp 18 01/23/18 11:40 BP 114/63 01/23/18 11:40 Pulse Ox 91 L 01/23/18 11:40 Intake & Output 01/22/18 01/23/18 01/23/18 18:59 06:59 18:59 Intake Total 240 900 Balance 240 900 Weight 102.5 kg 102.5 kg 102.5 kg Intake: Oral 240 900 Other: # Voids 1 1 1 - Exam PHYSICAL EXAMINATION: GENERAL: 87-year-old gentleman in no acute distress at the time of my examination HEENT: Head is atraumatic, normocephalic. Pupils equal, round. Sclera anicteric. Conjunctiva are clear. Mucous membranes of the mouth are moist. Neck is supple. There is no elevated jugular venous pressure. No carotid bruit is heard. HEART EXAMINATION: Heart S1 S2 1 systolic ejection murmur is heard. CHEST EXAMINATION: Lungs are clear to auscultation and precussion. No chest wall tenderness is noted on palpation or with deep breathing. ABDOMEN: Soft, nontender. Bowel sounds are heard. No organomegaly noted. EXTREMITIES: 2+ peripheral pulses with no evidence of peripheral edema and no calf tenderness noted. NEUROLOGIC patient is awake, alert and oriented 3. . - Labs CBC & Chem 7: 01/22/18 03:40 01/22/18 03:40 Labs: Abnormal Lab Results - Last 24 Hours (Table) 01/23/18 01/23/18 Range/Units 06:49 06:49 PT 35.9 H (9.0-12.0) sec INR 3.7 H (<1.2) HDL Cholesterol 30 L (40-60) mg/dL Assessment and Plan Plan: Assessment and plan #1 chest discomfort with some atypical features for acute coronary syndrome. Initial troponin 0.012. EKG shows a sensed V paced rhythm with no acute changes. #2 known history of coronary artery disease with prior bypass surgery, prior to his bypass patient did have stent placements. Most recent cardiac catheterization was performed in April of last year at which time the patient was found to have a subtotally occluded mid and distal RCA as well as first obtuse marginal branch. Mild to moderate disease in the proximal LAD. Patent saphenous vein graft to the right coronary artery and patent saphenous vein graft to the circumflex, medical therapy was advised at that time. #3 history of tissue aortic valve replacement in 2014 #4 prior pacemaker implantation #5 hypertension #6 hyperlipidemia #7 PVD #8 paroxysmal atrial fibrillation, on Coumadin for anticoagulation, INR 4.6. Plan From cardiology's perspective, patient may be able to be discharged home today. We will make him a follow-up appointment to see Dr. Arceo in the office one week post discharge. DNP note has been reviewed, I agree with a documented findings and plan of care. Patient was seen and examined.
--- NOTE | 2018-01-24 12:11 | P.DS ---
Providers Date of admission: 01/22/18 06:10 Expected date of discharge: 01/23/18 Attending physician: Lalo Hsu Consults: 01/22/18 06:10 Consult Physician Urgent Consulting Provider: [facility] Reason/Comments: high risk chest pain Do you want consulting provider notified?: Yes, Notify in am Primary care physician: [facility] Course: 87-year-old male with a past medical history significant for coronary artery disease with previous CABG: saphenous vein graft to the OM1, OM2, and RCA and aortic valve replacement, hypertension, hyperlipidemia, atrial fib, and pacemaker insertion, who presented to the emergency room with a chief complaint of chest pain. Patient states he began having chest pain last night in the middle of the night. He is prescribed Prilosec for GERD but reports he has not been taking it. He thought the pain was related to his heartburn but after taking medication, the pain persisted so he decided to come to the ER for further evaluation. He denies SOB. Denies cough, congestion, or sputum production. Denies nausea or vomiting. Denies lightheadedness or dizziness. Denies change in bowel or bladder habits. Denies fever or chills. Patient had a cardiac cath performed in April 2016 revealing subtotally occluded mid and distal RCA as well as a first obtuse marginal branch. Mild to moderate disease in the proximal LAD. Patent saphenous vein graft to the right coronary artery and patent saphenous vein graft to the circumflex. Medical management was recommended. Echo from 2017 revealed ejection fraction of 40-45% and trace tricuspid regurgitation. Chest x-ray completed in the emergency room was negative for an acute cardio pulmonary process. Laboratory data upon admission revealed white count 7.8. Hemoglobin 15.9. Platelet count 169. Sodium 143. Potassium 4.2. BUN 19. Creatinine 1.07. Glucose 121. BNP 158. Troponin negative 2. INR was supratherapeutic at 4.6. Coumadin been placed on hold. The patient was admitted to the hospital under the care of Dr. Hsu. Consultations were placed to cardiology. The patient underwent stress testing which revealed findings compatible with pharmacologically-induced left ventricular myocardial ischemia. Decreased uptake along the septum towards the base of the heart on stress as compared to rest images. There may be some decreased uptake on the lateral wall inferiorly on stress compared to rest images. Dr. Arceo felt the reversibility was in an area of a totally occluded circumflex. No further intervention was recommended from cardiology. He was deemed stable for discharge. Most recent INR is 3.7. Patient was taking Coumadin 7.5 mg on Fridays and 5 mg on every other day. Patient is to hold his Coumadin until January 25. At that time he will begin a Coumadin regimen of 5 mg daily. He is to have his INR repeated his follow-up appointment. ASSESSMENT: Chest pain, present on admission, troponin negative x2 Coronary artery disease History of CABG: saphenous vein graft to the OM1, OM2, and RCA and aortic valve replacement, 2014 History of stent x 2 History of ARDS with trach and PEG post CABG Hyperlipidemia Hypertension Paroxysmal atrial fibrillation, on long-term anticoagulation with Coumadin Supratherapeutic INR, 4.6 on admission Permanent pacemaker insertion, 2014 Obesity: BMI 30.6 Nurse practitioner note has been reviewed by physician. Signing provider agrees with the documented findings, assessment, and plan of care. Patient Condition at Discharge: Stable Plan - Discharge Summary Discharge Rx Participant: No New Discharge Prescriptions: New Aspirin 81 mg PO DAILY #30 chew Warfarin [Coumadin] 5 mg PO DAILY #30 tab Continue Atorvastatin [Lipitor] 40 mg PO HS Metoprolol Tartrate [Lopressor] 50 mg PO HS rOPINIRole HCL [Requip] 2 mg PO BID Docusate [Colace] 100 mg PO BID Omeprazole [PriLOSEC] 40 mg PO DAILY PRN PRN Reason: heartburn/stomach Fluticasone/Vilanterol [Breo Ellipta 200-25 Mcg INH] 1 puff INHALATION DAILY Fluticasone Nasal [place] [Flonase Nasal [place]] 1 spray EA NOSTRIL DAILY guaiFENesin [Mucinex] 600 mg PO Q12HR PRN PRN Reason: Cold Symptoms Discontinued Warfarin [Coumadin] 5 mg PO SUMOTUWETHSA Warfarin [Coumadin] 7.5 mg PO FR Discharge Medication List Atorvastatin [Lipitor] 40 mg PO HS 06/30/14 [History] Metoprolol Tartrate [Lopressor] 50 mg PO HS 06/30/14 [History] rOPINIRole HCL [Requip] 2 mg PO BID 01/01/16 [History] Docusate [Colace] 100 mg PO BID 05/02/16 [History] Omeprazole [PriLOSEC] 40 mg PO DAILY PRN 04/22/17 [History] Fluticasone Nasal [place] [Flonase Nasal [place]] 1 spray EA NOSTRIL DAILY 01/22/18 [History] Fluticasone/Vilanterol [Breo Ellipta 200-25 Mcg INH] 1 puff INHALATION DAILY 07/05 [History] guaiFENesin [Mucinex] 600 mg PO Q12HR PRN 01/22/18 [History] Aspirin 81 mg PO DAILY #30 chew 01/23/18 [Rx] Warfarin [Coumadin] 5 mg PO DAILY #30 tab 01/23/18 [Rx] Follow up Appointment(s)/Referral(s): Twila Arceo MD [STAFF PHYSICIAN] - 1 Week (Office will call with follow up appointment time. ) Rubens Emery MD [Primary Care Provider] - 01/28/18 8:45 am (Saturday) Patient Instructions/Handouts: Chest Pain (DC), Nuclear Stress Test (DC) Activity/Diet/Wound Care/Special Instructions: DO NOT TAKE YOUR COUMADIN UNTIL SaturdayJANUARY 25 YOU WILL TAKE COUMADIN 5MG DAILY STARTING SATURDAY. YOU WILL NO LONGER TAKE 7.5MG ON FRIDAYS. REPEAT INR AT FOLLOW UP APPOINTMENT WITH DR. EMERY. Discharge Disposition: HOME SELF-CARE
== END 2018-01-23 15:07 | disposition home or self-care (01) ==
LOC: EC 03:16 → 3SCARD 06:10
PROVIDERS: ADMIT Family Medicine; ATTEND Family Medicine
DX: I25.10 Atherosclerotic heart disease of native coronary artery without angina pectoris (principal); I25.82 Chronic total occlusion of coronary artery; K21.9 Gastro-esophageal reflux disease without esophagitis; G25.81 Restless legs syndrome; I50.9 Heart failure, unspecified; I11.0 Hypertensive heart disease with heart failure; R79.1 Abnormal coagulation profile; I10 Essential (primary) hypertension; E78.5 Hyperlipidemia, unspecified; I73.9 Peripheral vascular disease, unspecified; I48.0 Paroxysmal atrial fibrillation; I07.1 Rheumatic tricuspid insufficiency; H91.93 Unspecified hearing loss, bilateral; Z95.0 Presence of cardiac pacemaker; Z95.1 Presence of aortocoronary bypass graft; Z79.899 Other long term (current) drug therapy; Z95.5 Presence of coronary angioplasty implant and graft; Z95.2 Presence of prosthetic heart valve; Z80.3 Family history of malignant neoplasm of breast; Z79.01 Long term (current) use of anticoagulants; Z88.8 Allergy status to other drugs, medicaments and biological substances; E66.9 Obesity, unspecified; Z68.30 Body mass index [BMI] 30.0-30.9, adult; Z80.8 Family history of malignant neoplasm of other organs or systems; Z82.49 Family history of ischemic heart disease and other diseases of the circulatory system
CPT/HCPCS: 99285; 36415; 94640; 93017; 83880; 80061; 80053; 82550; 82553; 83735; 84484; 85025; 85610 ×2; 85730; 71046; 78452; G0378 ×2; C8929; A9500; J2785; Q9950; 93005; 93306

== ENCOUNTER → 2018-06-20 | Outpatient (CLI) | payer MEDICARE ==
--- NOTE | 2018-06-21 11:49 | CT ---
EXAMINATION TYPE: CT abdomen pelvis w con DATE OF EXAM: 06/20/2018 COMPARISON: None HISTORY: lower anterior abdominal pain, hx of hernia CT DLP: 1761.1 mGycm CONTRAST: CT scan of the abdomen and pelvis is performed without Oral Contrast and with IV Contrast, patient in jected with 100 mL of Isovue 300. FINDINGS: LUNG BASES-: No visible nodule. No infiltrate. Sliding-type hiatal hernia noted. LIVER/GB: No calcified gallstones. 1 cm hepatic cyst left hepatic lobe. 1.0 cm cyst anterior segmen t right hepatic lobe. No solid hepatic lesions identified. Biliary tree is of normal caliber. PANCREAS: No inflammation. No distinct mass. SPLEEN: No splenic enlargement. No lesion seen. ADRENALS: No nodule. No thickening. KIDNEYS/BLADDER: No hydronephrosis. No nephrolithiasis. Interval cyst lower pole right kidney measu ring 2.9 cm. Urinary bladder grossly unremarkable. BOWEL: Normal appendix. Normal bowel caliber. No inflammation. GENITAL ORGANS: Prostate Glandular enlargement. Central glandular calcifications. LYMPH NODES: No greater than 1cm abdominal or pelvic lymph nodes are appreciated. AORTA: No significant abnormality. OSSEOUS STRUCTURES: No significant abnormality is seen. OTHER: Fat-containing midline ventral hernia IMPRESSION: 1. Fat-containing ventral hernia. 2. Prostate glandular enlargement. 3. Renal and hepatic cysts. 4. Hiatal hernia.
== END | disposition home or self-care (01) ==
LOC: RADCTMAIN 15:22
PROVIDERS: ATTEND Student in an Organized Health Care Education/Training Program
DX: K43.9 Ventral hernia without obstruction or gangrene (principal); K44.9 Diaphragmatic hernia without obstruction or gangrene; K76.89 Other specified diseases of liver; N28.1 Cyst of kidney, acquired; N40.0 Benign prostatic hyperplasia without lower urinary tract symptoms
CPT/HCPCS: 82565; 84520; 74177; 36415; Q9967

== ENCOUNTER → 2018-10-15 | Outpatient (CLI) | payer MEDICARE, OTHER ==
--- NOTE | 2018-10-15 15:02 | CT ---
EXAMINATION TYPE: CT lumbar spine wo con DATE OF EXAM: 10/15/2018 12:33 PM COMPARISON: CT abdomen pelvis 06/20/2018 HISTORY: Lower back pain CT DLP: 1617.9 mGycm Automated exposure control for dose reduction was used. Unenhanced CT of the lumbar spine was performed. Bone and soft tissue window settings are submitted as well as coronal and sagittal reconstructions. T12-L1: There is hypertrophic spurring and degenerative disc disease but no focal herniation or canal stenosis. Neural foramina patent. L1-L2: Vacuum disc and severe degenerative disc disease with circumferential disc bulging and facet a rthropathy. No Canal stenosis. Mild bilateral foraminal encroachment. L2-L3: Vacuum disc and severe degenerative disc disease. Diffuse disc bulging with ligamentum flavum and facet hypertrophy resulting canal stenosis and bilateral foraminal encroachment. L3-L4: Degenerative disc disease with diffuse disc bulging and hypertrophy of the ligamentum flavum a nd facet joints with bilateral foraminal encroachment and canal stenosis. L4-L5: Degenerative disc disease with diffuse disc bulging, facet arthropathy and ligamentum flavum r esulting in significant canal stenosis and bilateral foraminal encroachment. L5-S1: Vacuum disc and severe degenerative disc disease with facet arthropathy and bilateral foramina l encroachment. Central disc bulging noted. IMPRESSION: 1. Severe multilevel degenerative disc disease with multilevel hypertrophic changes and disc bulging resulting in multilevel canal stenosis and foraminal encroachment. Most marked findings at L4-L5 with severe canal stenosis suspected, recommend MRI follow-up.
== END | disposition home or self-care (01) ==
LOC: RADCTMAIN 12:11
PROVIDERS: ATTEND Family Medicine
DX: M48.061 Spinal stenosis, lumbar region without neurogenic claudication (principal); M51.36 Other intervertebral disc degeneration, lumbar region; M51.86 Other intervertebral disc disorders, lumbar region
CPT/HCPCS: 72131

== ENCOUNTER → 2019-05-22 | Outpatient (CLI) | payer MEDICARE ==
--- NOTE | 2019-05-22 10:36 | CT ---
EXAMINATION TYPE: CT lumbar spine wo con DATE OF EXAM: 05/22/2019 COMPARISON: October 15, 2018 HISTORY: bilateral leg weakness CT DLP: 2248.[address] of the lumbar spine was performed. Bone and soft tissue window settings are submitted as well as coronal and sagittal reconstructions. L1-L2: Vacuum disc noted. Mild posterior disc bulge. No evidence for herniation or central stenosis. Ventral spondylosis. L2-L3: Vacuum disks noted with posterior disc bulge. Hypertrophy ligamentum flavum and facet joint ar thropathy result in mild central stenosis and bilateral foraminal encroachment. L3-L4: Moderate to severe disc space narrowing with posterior disc bulge. Hypertrophy ligamentum flav um and facet joint arthropathy resulting in moderate central stenosis. Bilateral foraminal encroachm ent. L4-L5: Moderate to severe disc space narrowing with posterior disc bulge. Hypertrophy ligamentum flav um and facet joint arthropathy resulting in moderate central stenosis. Bilateral foraminal encroachm ent. L5-S1: Vacuum disc noted. Mild posterior disc bulge. No herniation protrusion. Facet arthropathy resu lting in bilateral foraminal encroachment. No paraspinal masses are identified. Lumbar segments are free of fracture. IMPRESSION: 1. Multilevel degenerative disc disease with multilevel central stenosis as outlined above.
== END | disposition home or self-care (01) ==
LOC: RADCTMAIN 09:20
PROVIDERS: ATTEND Family Medicine
DX: M48.061 Spinal stenosis, lumbar region without neurogenic claudication (principal); M51.36 Other intervertebral disc degeneration, lumbar region; M48.07 Spinal stenosis, lumbosacral region; R26.89 Other abnormalities of gait and mobility
CPT/HCPCS: 72131

== ENCOUNTER → 2019-06-01 | Outpatient (CLI) | payer MEDICARE, OTHER ==
--- NOTE | 2019-06-01 11:48 | CT ---
EXAMINATION TYPE: CT cervical spine wo con DATE OF EXAM: 06/01/2019 COMPARISON: 06/01/2019 HISTORY: cervical myelopathy, bilateral hand weakness CT DLP: 708.[address] of the cervical spine was performed with bone and soft tissue window settings submitted . Coronal and sagittal reconstruction is obtained. There is normal alignment and prevertebral soft tissues. I do not see evidence for fracture or subluxation. The lung apices are clear. Scattered ventral spondylosis. C2-3: Within normal limits C3-4: Mild degenerative narrowing with posterior disc bulge. No evidence for herniation or central st enosis. No foraminal encroachment. C4-5: Moderate degenerative narrowing with posterior disc bulge and focal posterior central herniatio n. Effacement ventral thecal sac with mild central stenosis. Degenerative change of the cervical apop hyseal joints resulting in bilateral foraminal encroachment. C5-6: Severe degenerative disc space narrowing. Posterocentral disc herniation. Moderate central sten osis. Bilateral foraminal encroachment. C6-7: Severe degenerative disc space narrowing. Posterior disc bulge with encapsulating spur resultin g in disc endplate complex. [id number] central stenosis. Bilateral foraminal encroachment. C7-T1: Within normal limits. IMPRESSION: Bilateral degenerative disc disease with multilevel central stenosis, herniations and foraminal encro achment.
== END | disposition home or self-care (01) ==
LOC: RADCTMAIN 11:03
PROVIDERS: ATTEND Orthopaedic Surgery Orthopaedic Surgery of the Spine
DX: M48.02 Spinal stenosis, cervical region (principal); M50.20 Other cervical disc displacement, unspecified cervical region; M50.30 Other cervical disc degeneration, unspecified cervical region
CPT/HCPCS: 72125

== ENCOUNTER 2019-08-04 16:29 | Observation (INO) | payer MEDICARE, OTHER ==
[2019-08-04 16:47] LABS: Glucose,Whole Blood 102 mg/dL (75-99)
[2019-08-04 17:14] LABS: Basophils # (A) 0.1 k/uL (0-0.2); Basophils % (A) 1 %; Eosinophils # (A) 0.8 k/uL (0-0.7); Eosinophils % (A) 10 %; HCT 46.8 % (39.0-53.0); HGB 14.7 gm/dL (13.0-17.5); Lymphocytes # (A) 2.6 k/uL (1.0-4.8); Lymphocytes % (A) 35 %; MCH 28.2 pg (25.0-35.0); MCHC 31.4 g/dL (31.0-37.0); MCV 89.7 fL (80.0-100.0); Mean Platelet Volume 9.2; Monocytes # (A) 0.6 k/uL (0-1.0); Monocytes % (A) 8 %; Neutrophils # (A) 3.2 k/uL (1.3-7.7); Neutrophils % (A) 43 %; Platelet Count 187 k/uL (150-450); RBC 5.22 m/uL (4.30-5.90); RDW 14.6 % (11.5-15.5); WBC 7.4 k/uL (3.8-10.6)
[2019-08-04 17:26] LABS: Albumin 3.5 g/dL (3.5-5.0); Calcium 8.9 mg/dL (8.4-10.2); Potassium 4.8 mmol/L (3.5-5.1); Total Protein 6.9 g/dL (6.3-8.2)
--- NOTE | 2019-08-04 17:32 | XR ---
EXAMINATION TYPE: XR chest 2V DATE OF EXAM: 08/04/2019 COMPARISON: 01/22/2018 INDICATION: Altered mental status TECHNIQUE: Frontal and lateral views of the chest are obtained. FINDINGS: The heart size is normal. The pulmonary vasculature is normal. The lungs are clear. Pacemaker overlies left chest. IMPRESSION: 1. No acute pulmonary process.
[2019-08-04 17:47] LABS: Appearance,Urine Cloudy (Clear); Bilirubin,Urine Negative (Negative); Blood,Urine Moderate (Negative); Color,Urine Yellow; Glucose,Urine (UA) Negative (Negative); Ketones,Urine Negative (Negative); Leukocyte Esterase,Urine Large (Negative); Mucus,Urine Rare /hpf; Nitrite,Urine Negative (Negative); Protein,Urine Trace (Negative); RBC,Urine 2 /hpf (0-5); Specific Gravity,Urine 1.017 (1.001-1.035); Urobilinogen,Urine <2.0 mg/dL (<2.0); WBC,Urine 17 /hpf (0-5)
[2019-08-04 18:01] LABS: Partial Thromboplastin Time 32.5 sec (22.0-30.0)
--- NOTE | 2019-08-04 18:30 | ED ---
General Adult HPI - General Chief complaint: Recheck/Abnormal Lab/Rx Stated complaint: weakness Time Seen by Provider: 08/04/19 16:40 Source: patient, family, EMS Mode of arrival: EMS Limitations: no limitations - History of Present Illness Initial comments: The patient is an 89-year-old male with multiple medical conditions to include A. fib, coronary disease, and new diagnosis of CIDP who presents to the emergency department after an unresponsive episode at home. Daughter is at bedside and helps provide history. She states that the patient has been more fatigued throughout the day today and has had decreased responsiveness. He has been so sleepy that has not ate or drank anything at home today. He is unable to ambulate. He have a home care nurse who comes into the house to assist him with his care. She noted that he was having several episodes of apnea. Because of this EMS was called. They report that he has a history of chronic urinary tract infections. He has a [place] in place. He just finished antibiotics which consisted of cephalexin azithromycin. Antibiotics finished on Saturday. They deny any falls or head trauma. Patient does have have a history of dementia. He was on hospice up until today and as soon as EMS arrived they signed off. They have been following with Dr. Catalan in regards to his recent diagnosis of CIDP. with anticipated plans of performing a muscle biopsy and mri. Daughter reports that everything has been delayed because of the recent Covid pandemic. - Related Data Home Medications Medication Instructions Recorded Confirmed Atorvastatin [Lipitor] 40 mg PO HS 06/30/14 08/04/19 Metoprolol Tartrate [Lopressor] 25 mg PO HS 06/30/14 08/04/19 Docusate [Colace] 100 mg PO BID 05/02/16 08/04/19 Omeprazole [PriLOSEC] 40 mg PO DAILY PRN 04/22/17 08/04/19 Baclofen 5 - 10 mg PO HS 08/04/19 08/04/19 Pregabalin [Lyrica] 150 mg PO BID 08/04/19 08/04/19 Tamsulosin HCl [Flomax] 0.4 mg PO DAILY 08/04/19 08/04/19 Warfarin Sodium 2.5 mg PO SUMOWEFR 08/04/19 08/04/19 Warfarin [Coumadin] 5 mg PO TUTHSA 08/04/19 08/04/19 Allergies Allergy/AdvReac Type Severity Reaction Status Date / Time cat dander Allergy Itching Verified 08/04/19 17:35 pollen extracts Allergy Unknown Verified 08/04/19 17:35 gabapentin AdvReac dizzy Verified 08/04/19 17:35 Review of Systems ROS Statement: Those systems with pertinent positive or pertinent negative responses have been documented in the HPI. ROS Other: All systems not noted in ROS Statement are negative. Past Medical History Past Medical History: Atrial Fibrillation, Coronary Artery Disease (CAD), Chest Pain / Angina, Heart Failure, Hearing Disorder / Deafness, Hyperlipidemia, Hypertension, Vascular Disorder Additional Past Medical History / Comment(s): Paroxysmal Afib, A/V dissociation with pacer, PVD, RLS, 2014 ARDS during hospitalization for CABG/AVR required extended hospitalization-trach/vent and peg, bronchitis, diverticular disease, [place] bilaterally. 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 Past Anesthesia/Blood Transfusion Reactions: No Reported Reaction Date of Last Stent Placement:: 2010 Type of Cardiac Device: Permanent Pacemaker Device Placement Date:: 03/2014 Past Psychological History: No Psychological Hx Reported Smoking Status: Never smoker Past Alcohol Use History: None Reported Past Drug Use History: None Reported - Past Family History Daughter(s) History Unknown: Yes Family Medical History: Cancer Additional Family Medical History / Comment(s): BREAST Son(s) History Unknown: Yes Family Medical History: Cancer Additional Family Medical History / Comment(s): PANCREATIC Mother History Unknown: Yes Family Medical History: Cancer Additional Family Medical History / Comment(s): Breast cancer- of this at age 49 Father History Unknown: Yes Family Medical History: Myocardial Infarction (MD) Additional Family Medical History / Comment(s): at age 60 d/t MD General Exam Limitations: no limitations General appearance: alert, in no apparent distress Head exam: Present: atraumatic, normocephalic, normal inspection Eye exam: Present: normal appearance, PERRL, EOMI. Absent: scleral icterus, conjunctival injection, periorbital swelling ENT exam: Present: normal exam, mucous membranes moist Neck exam: Present: normal inspection. Absent: tenderness, meningismus, lymphadenopathy Respiratory exam: Present: normal lung sounds bilaterally, other (bronchospastic cough). Absent: respiratory distress, wheezes, rales, rhonchi, stridor Cardiovascular Exam: Present: regular rate, normal rhythm, normal heart sounds. Absent: systolic murmur, diastolic murmur, rubs, gallop, clicks GI/Abdominal exam: Present: soft, normal bowel sounds. Absent: distended, tenderness, guarding, rebound, rigid Extremities exam: Present: normal inspection, full ROM, normal capillary refill. Absent: tenderness, pedal edema, joint swelling, calf tenderness Back exam: Present: normal inspection Neurological exam: Present: alert, oriented X3, CN II-XII intact Psychiatric exam: Present: normal affect, normal mood Skin exam: Present: warm, dry, intact, normal color. Absent: rash Course Vital Signs 08/04/19 08/04/19 08/04/19 16:40 18:19 19:38 Temperature 98.0 F 97.9 F Pulse Rate 92 84 83 Respiratory 18 18 18 Rate Blood Pressure 108/71 113/66 109/63 O2 Sat by Pulse 95 95 96 Oximetry EKG Findings - EKG Comments: EKG Findings:: EKG demonstrates a ventricularly paced rhythm. Rate of 90. AK interval 222. QRS 174. QTC of 535. EKG appears to capture appropriately. No sgarbossa criteria Medical Decision Making - Medical Decision Making Upon arrival the patient is placed into room 8. A thorough history and physical exam is performed. Patient is appropriate and answers questions appropriately. Vitals are all stable. He is up to continuous pulse ox and cardiac monitoring. A 12-lead EKG is performed. Laboratory studies are performed and are essentially unremarkable. INR is 2. UA shows moderate blood with large leukocyte esterase and [address] of the patient's brain demonstrates no acute intracranial process. Atrophy with periventricular white matter ischemic changes. Chest x-ray demonstrates no acute cardiopulmonary process. I updated the patient as well as his stepdaughter at bedside. I dis cussed the case with Dr. Hsu who did accept admission for the patient. I will consult neurology. Urine culture, blood culture and sputum cultures sent. Patient will be given a gram of Rocephin for his abnormal UA and we will await for urine culture results. Patient was in agreement with this treatment plan and he was transferred to floor in stable condition - Lab Data Result diagrams: 08/05/19 05:26 08/05/19 05:26 Lab Results 08/04/19 08/04/19 08/04/19 Range/Units 16:45 17:00 17:00 WBC 7.4 (3.8-10.6) k/uL RBC 5.22 (4.30-5.90) m/uL Hgb 14.7 (13.0-17.5) gm/dL Hct 46.8 (39.0-53.0) % MCV 89.7 (80.0-100.0) fL MCH 28.2 (25.0-35.0) pg MCHC 31.4 (31.0-37.0) g/dL RDW 14.6 (11.5-15.5) % Plt Count 187 (150-450) k/uL Neutrophils % 43 % Lymphocytes % 35 % Monocytes % 8 % Eosinophils % 10 % Basophils % 1 % Neutrophils # 3.2 (1.3-7.7) k/uL Lymphocytes # 2.6 (1.0-4.8) k/uL Monocytes # 0.6 (0-1.0) k/uL Eosinophils # 0.8 H (0-0.7) k/uL Basophils # 0.1 (0-0.2) k/uL PT 19.0 H (9.0-12.0) sec INR 2.0 H (<1.2) APTT 32.5 H (22.0-30.0) sec Sodium (137-145) mmol/L Potassium (3.5-5.1) mmol/L Chloride (98-107) mmol/L Carbon Dioxide (22-30) mmol/L Anion Gap mmol/L BUN (9-20) mg/dL Creatinine (0.66-1.25) mg/dL Est GFR (CKD-EPI)AfAm (>60 ml/min/1.73 sqM) Est GFR (CKD-EPI)NonAf (>60 ml/min/1.73 sqM) Glucose (74-99) mg/dL POC Glucose (mg/dL) 102 H (75-99) mg/dL POC Glu Paving Block Cutter ID Maria Elena Alva Calcium (8.4-10.2) mg/dL Total Bilirubin (0.2-1.3) mg/dL AST (17-59) U/L ALT (4-49) U/L Alkaline Phosphatase (38-126) U/L Creatine Kinase (55-170) U/L Troponin I (0.000-0.034) ng/mL Total Protein (6.3-8.2) g/dL Albumin (3.5-5.0) g/dL Urine Color Urine Appearance (Clear) Urine pH (5.0-8.0) Ur Specific [place] (1.001-1.035) Urine Protein (Negative) Urine Glucose (UA) (Negative) Urine Ketones (Negative) Urine Blood (Negative) Urine Nitrite (Negative) Urine Bilirubin (Negative) Urine Urobilinogen (<2.0) mg/dL Ur Leukocyte Esterase (Negative) Urine RBC (0-5) /hpf Urine WBC (0-5) /hpf Urine Mucus (None) /hpf Coronavirus (PCR) (Not Detected) 08/04/19 08/04/19 08/04/19 Range/Units 17:00 17:00 17:35 WBC (3.8-10.6) k/uL RBC (4.30-5.90) m/uL Hgb (13.0-17.5) gm/dL Hct (39.0-53.0) % MCV (80.0-100.0) fL MCH (25.0-35.0) pg MCHC (31.0-37.0) g/dL RDW (11.5-15.5) % Plt Count (150-450) k/uL Neutrophils % % Lymphocytes % % Monocytes % % Eosinophils % % Basophils % % Neutrophils # (1.3-7.7) k/uL Lymphocytes # (1.0-4.8) k/uL Monocytes # (0-1.0) k/uL Eosinophils # (0-0.7) k/uL Basophils # (0-0.2) k/uL PT (9.0-12.0) sec INR (<1.2) APTT (22.0-30.0) sec Sodium 140 (137-145) mmol/L Potassium 4.8 (3.5-5.1) mmol/L Chloride 108 H (98-107) mmol/L Carbon Dioxide 25 (22-30) mmol/L Anion Gap 7 mmol/L BUN 16 (9-20) mg/dL Creatinine 1.04 (0.66-1.25) mg/dL Est GFR (CKD-EPI)AfAm 75 (>60 ml/min/1.73 sqM) Est GFR (CKD-EPI)NonAf 65 (>60 ml/min/1.73 sqM) Glucose 104 H (74-99) mg/dL POC Glucose (mg/dL) (75-99) mg/dL POC Glu Paving Block Cutter ID Calcium 8.9 (8.4-10.2) mg/dL Total Bilirubin 1.0 (0.2-1.3) mg/dL AST 32 (17-59) U/L ALT 16 (4-49) U/L Alkaline Phosphatase 97 (38-126) U/L Creatine Kinase 72 (55-170) U/L Troponin I <0.012 (0.000-0.034) ng/mL Total Protein 6.9 (6.3-8.2) g/dL Albumin 3.5 (3.5-5.0) g/dL Urine Color Yellow Urine Appearance Cloudy (Clear) Urine pH 5.0 (5.0-8.0) Ur Specific [place] 1.017 (1.001-1.035) Urine Protein Trace H (Negative) Urine Glucose (UA) Negative (Negative) Urine Ketones Negative (Negative) Urine Blood Moderate H (Negative) Urine Nitrite Negative (Negative) Urine Bilirubin Negative (Negative) Urine Urobilinogen <2.0 (<2.0) mg/dL Ur Leukocyte Esterase Large H (Negative) Urine RBC 2 (0-5) /hpf Urine WBC 17 H (0-5) /hpf Urine Mucus Rare H (None) /hpf Coronavirus (PCR) (Not Detected) 08/04/19 Range/Units 19:40 WBC (3.8-10.6) k/uL RBC (4.30-5.90) m/uL Hgb (13.0-17.5) gm/dL Hct (39.0-53.0) % MCV (80.0-100.0) fL MCH (25.0-35.0) pg MCHC (31.0-37.0) g/dL RDW (11.5-15.5) % Plt Count (150-450) k/uL Neutrophils % % Lymphocytes % % Monocytes % % Eosinophils % % Basophils % % Neutrophils # (1.3-7.7) k/uL Lymphocytes # (1.0-4.8) k/uL Monocytes # (0-1.0) k/uL Eosinophils # (0-0.7) k/uL Basophils # (0-0.2) k/uL PT (9.0-12.0) sec INR (<1.2) APTT (22.0-30.0) sec Sodium (137-145) mmol/L Potassium (3.5-5.1) mmol/L Chloride (98-107) mmol/L Carbon Dioxide (22-30) mmol/L Anion Gap mmol/L BUN (9-20) mg/dL Creatinine (0.66-1.25) mg/dL Est GFR (CKD-EPI)AfAm (>60 ml/min/1.73 sqM) Est GFR (CKD-EPI)NonAf (>60 ml/min/1.73 sqM) Glucose (74-99) mg/dL POC Glucose (mg/dL) (75-99) mg/dL POC Glu Paving Block Cutter ID Calcium (8.4-10.2) mg/dL Total Bilirubin (0.2-1.3) mg/dL AST (17-59) U/L ALT (4-49) U/L Alkaline Phosphatase (38-126) U/L Creatine Kinase (55-170) U/L Troponin I (0.000-0.034) ng/mL Total Protein (6.3-8.2) g/dL Albumin (3.5-5.0) g/dL Urine Color Urine Appearance (Clear) Urine pH (5.0-8.0) Ur Specific [place] (1.001-1.035) Urine Protein (Negative) Urine Glucose (UA) (Negative) Urine Ketones (Negative) Urine Blood (Negative) Urine Nitrite (Negative) Urine Bilirubin (Negative) Urine Urobilinogen (<2.0) mg/dL Ur Leukocyte Esterase (Negative) Urine RBC (0-5) /hpf Urine WBC (0-5) /hpf Urine Mucus (None) /hpf Coronavirus (PCR) Not Detected (Not Detected) Disposition Clinical Impression: Altered mental status, Cough, Abnormal finding on urinalysis Disposition: ADMITTED IP TO THIS [facility] Condition: Stable Is patient prescribed a controlled substance at d/c from ED?: No Decision to Admit Reason: Admit from EC Decision Date: 08/04/19 Decision Time: 19:44
--- NOTE | 2019-08-04 18:53 | CT ---
EXAMINATION TYPE: CT brain wo con DATE OF EXAM: 08/04/2019 COMPARISON: 09/29/2012 INDICATION: Lethargic, confusion DLP: 1072.4 mGycm, Automated exposure control for dose reduction was used. CONTRAST: None CT of the brain is performed utilizing 3 mm thick sections through the posterior fossa and 3 mm thick sections through the remaining calvarium. Study is performed within 24 hours of arrival to the hosp ital. No abnormal hyperdensity is present to suggest an acute intracranial hemorrhage. No mass lesion is evident. No acute infarcts are evident. Scattered periventricular white matter hypodensities are present, like ly on the basis of chronic white matter ischemic change. This is somewhat progressive from the 2013 c omparison. Ventricles and sulci are prominent for the patient age. Paranasal sinuses and mastoid air cells within the [id number] are clear. IMPRESSIONS: 1. No acute intracranial process. 2. Atrophy with adequate. Periventricular white matter ischemic changes. This is progressive from 201 3.
[2019-08-04] MEDS: SODIUM CHLORIDE 0.9% 1,000 ML IV SCH (19:36)
[2019-08-04] MEDS ORDERED: cefTRIAXone IN SWFI 1,000 MG/10 ML SYRINGE IVP STA (19:40)
[2019-08-04] MEDS ORDERED: NALOXONE 0.4 MG/ML 1 ML VIAL IV PRN (19:44)
[2019-08-04] MEDS ORDERED: PANTOPRAZOLE 40 MG TABLET PO PRN (19:46)
[2019-08-04] MEDS ORDERED: WARFARIN 5 MG TAB PO STA (19:48)
[2019-08-04] MEDS ORDERED: METOPROLOL TARTRATE 25 MG TAB PO SCH (21:00)
[2019-08-04] MEDS ORDERED: ATORVASTATIN 40 MG TAB PO SCH (21:00)
[2019-08-04] MEDS ORDERED: BACLOFEN 10 MG TAB PO SCH (21:00)
[2019-08-04] MEDS: PREGABALIN 75 MG CAP PO SCH (23:36)
[2019-08-04] MEDS: DOCUSATE 100 MG CAP PO SCH (23:37)
[2019-08-05 05:40] LABS: Basophils # (A) 0.1 k/uL (0-0.2); Basophils % (A) 1 %; Eosinophils # (A) 0.6 k/uL (0-0.7); Eosinophils % (A) 9 %; HCT 41.3 % (39.0-53.0); HGB 13.4 gm/dL (13.0-17.5); Hypochromasia Slight; Lymphocytes % (A) 28 %; MCH 29.6 pg (25.0-35.0); MCHC 32.5 g/dL (31.0-37.0); MCV 90.9 fL (80.0-100.0); Monocytes # (A) 0.6 k/uL (0-1.0); Monocytes % (A) 8 %; Neutrophils # (A) 3.7 k/uL (1.3-7.7); Neutrophils % (A) 52 %; Platelet Count 165 k/uL (150-450); RBC 4.54 m/uL (4.30-5.90); RDW 14.6 % (11.5-15.5); WBC 7.2 k/uL (3.8-10.6)
[2019-08-05 05:47] LABS: Potassium 4.3 mmol/L (3.5-5.1)
[2019-08-05 05:48] LABS: Calcium 8.3 mg/dL (8.4-10.2)
[2019-08-05 08:04] VITALS: TEMP 98.2
[2019-08-05] MEDS: DOCUSATE 100 MG CAP PO SCH (08:12)
[2019-08-05] MEDS: PREGABALIN 75 MG CAP PO SCH (08:12)
[2019-08-05] MEDS: SODIUM CHLORIDE 0.9% 1,000 ML IV SCH ×2 (08:13→16:26)
[2019-08-05] MEDS ORDERED: TAMSULOSIN 0.4 MG CAP.ER.24H PO SCH (09:00)
--- NOTE | 2019-08-05 13:51 | P.CNNES ---
History of Present Illness Consult date: 08/05/19 Requesting physician: Silvia Storm Reason for Consult: Acute transient encephalopathy History of Present Illness: Patient is a 89-year-old male with history of atrial fibrillation, coronary artery disease, dementia, newly diagnosed CIDP, presents to the ER after an unresponsive episode at home. Patient at present appears alert and oriented 3. Patient is more complaining about weakness and falls as mentioned below. However likely is from ED states that patient's daughter has mentioned that he has been more fatigued throughout the day and has decreased responsiveness. He was so sleepy that he did not eat or drink anything. He is unable to ambulate. She also notices that he was having some episodes of apnea. Patient has chronic daily retained Foleys catheter. Some report of dementia. Patient tells me that about 1-1/2 months ago he fell down. He was walking with a walker when it hit a rule out break in the walker tripped and he fell hitting his head and right shoulder. About a week later he started noticing numbness and tingling in the hands. His legs are getting weaker. Patient states bila teral thumb has burning sensation. As the middle 3 fingers have tingling all the time, left more than right. His left hand fingers cramp up frequently. Patient has chronic incontinence of urine. He has a retained Foleys catheter for the last 6 months, due to inability to control the urine. He is also significantly constipated. Patient has fell 3 other times besides the one mentioned above. About one month prior to this last fall, he was walking with no device, tripped on the edge of the driveway, banged his head. About 3-4 months ago, he was using his scooter, and the scooter tipped and he fell on the left side. Patient had a fall several years ago, when he was cutting the grass, tripped on the edge of the driveway and fell face forward with his right arm was buckled underneath him and he fell forwards, breaking his nose. 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 Denies any neck pain. CT head showed no acute intracranial process. Atrophy with periventricular white matter ischemic changes. This is progressive from 2012. CT of the cervical spine from 06/01/2019 showed bilateral degenerative disc disease with multilevel central stenosis, herniations and foraminal encroachment. Apparently patient has moderate central stenosis at C5 6, mild to moderate central stenosis at C6 7 levels based upon computed tomography scan. CT of the lumbar spine from 05/22/2019 shows multilevel degenerative disc disease with multilevel central stenosis. Overall there is moderate central stenosis at L3 4, moderate central stenosis at L4 5, as per details of the report. Chest x-ray showed no acute process. EKG with atrial sensed ventricular paced rhythm with prolonged AV conduction. Blood test shows normal CBC. INR is 2.0. Electrolytes normal. Renal and liver functions normal. UA showed large amount of leukocyte esterase, negative nitrite, 17 WBC. ESR is 24 on 07/14/2019. Hemoglobin A1c 6.0 on 01/05/2016. Aldolase is 17.3/7.6. CPK is normal 72. 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 There was no electrophysiological evidence of isolated abnormality of the examed and nerves of cervical radiculopathy. 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 There was no electrophysiological evidence of isolated abnormality of the exam and nerves, or lumbosacral radiculopathy, although a negative needle EMG examination may not preclude lumbosacral radiculopathy. On my review, motor distal latencies are normal. Seen in and issued is decrease of the left peroneal motor, borderline of the left tibial motor whereas normal on the right side. Conduction velocities was decreased mildly. Patient does have evidence of bilateral CTS and possible right ulnar nerve compression at the elbow. Sensory conduction studies revealed absent bilateral sural but normal radial sensory and moderately abnormal ulnar sensory responses. No denervation seen in the distal or proximal muscles of bilateral upper limbs. Patient denies history of hypertension, diabetes never smoked, does not drink alcohol. Review of Systems Patient denies headache problems with vision hand turner sore throat dysphagia. Denies diplopia nausea vomiting diarrhea. Denies abdominal pain. Patient complains of low back pain. Denies any neck pain. Has significant gait issues. Patient feels fatigued and tired. Patient does have chronic urinary incontinence has retained Foleys completed. Also has constipation. All other review of systems unremarkable. Past Medical History Past Medical History: Atrial Fibrillation, Coronary Artery Disease (CAD), Chest Pain / Angina, Heart Failure, Hearing Disorder / Deafness, Hyperlipidemia, Hypertension, Vascular Disorder Additional Past Medical History / Comment(s): Paroxysmal Afib, A/V dissociation with pacer, PVD, RLS, 2014 ARDS during hospitalization for CABG/AVR required extended hospitalization-trach/vent and peg, bronchitis, diverticular disease, [place] bilaterally. 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 Past Anesthesia/Blood Transfusion Reactions: No Reported Reaction Date of Last Stent Placement:: 2010 Type of Cardiac Device: Permanent Pacemaker Device Placement Date:: 03/2014 Past Psychological History: No Psychological Hx Reported Additional Psychological History / Comment(s): Pt resides with his spouse. He has a scooter which he uses occasionally. He owns a cane and walker but does not use them. He drives. Smoking Status: Never smoker Past Alcohol Use History: None Reported Past Drug Use History: None Reported - Past Family History Daughter(s) History Unknown: Yes Family Medical History: Cancer Additional Family Medical History / Comment(s): BREAST Son(s) History Unknown: Yes Family Medical History: Cancer Additional Family Medical History / Comment(s): PANCREATIC Mother History Unknown: Yes Family Medical History: Cancer Additional Family Medical History / Comment(s): Breast cancer- of this at age 49 Father History Unknown: Yes Family Medical History: Myocardial Infarction (ID) Additional Family Medical History / Comment(s): at age 60 d/t ID Medications and Allergies Home Medications Medication Instructions Recorded Confirmed Type Atorvastatin [Lipitor] 40 mg PO HS 06/30/14 08/04/19 History Metoprolol Tartrate [Lopressor] 25 mg PO HS 06/30/14 08/04/19 History Docusate [Colace] 100 mg PO BID 05/02/16 08/04/19 History Omeprazole [PriLOSEC] 40 mg PO DAILY PRN 04/22/17 08/04/19 History Baclofen 5 - 10 mg PO HS 08/04/19 08/04/19 History Pregabalin [Lyrica] 150 mg PO BID 08/04/19 08/04/19 History Tamsulosin HCl [Flomax] 0.4 mg PO DAILY 08/04/19 08/04/19 History Warfarin Sodium 2.5 mg PO SUMOWEFR 08/04/19 08/04/19 History Warfarin [Coumadin] 5 mg PO TUTHSA 08/04/19 08/04/19 History Allergies Allergy/AdvReac Type Severity Reaction Status Date / Time cat dander Allergy Itching Verified 08/04/19 17:35 pollen extracts Allergy Unknown Verified 08/04/19 17:35 gabapentin AdvReac dizzy Verified 08/04/19 17:35 Physical Examination - Vital Signs Vital Signs: Vital Signs Temp Pulse Pulse Resp BP BP Pulse Ox 08/05/19 08:03 98.2 F 95 16 99/59 96 08/05/19 03:25 97.9 F 86 94/57 94 L 08/04/19 21:40 97.5 F L 100 18 121/69 96 08/04/19 19:38 97.9 F 83 18 109/63 96 08/04/19 18:19 84 18 113/66 95 08/04/19 16:40 98.0 F 92 18 108/71 95 Intake and Output 08/04/19 08/05/19 08/05/19 22:59 06:59 14:59 Output Total 350 400 Balance -350 -400 Output: Urine 350 400 Other: Voiding Method Indwelling Catheter # Voids 400 Weight 99.79 kg On examination patient is an elderly male, very pleasant, alert and oriented 3. Speech and language functions are normal. Attention and concentration fund of knowledge is adequate. On cranial nerve examination pupils are round and reactive to light, visual call are full on confrontation. Extraocular muscles are intact with no nystagmus. Face is symmetric, tongue protrudes the midline. Palatal elevation and sensation normal. Hearing is slightly decreased and shoulder shrug normal. On muscle strength testing patient has very asymmetric weakness. In the upper extremities (Right/left) deltoid 3+/2 biceps 4/4+. Triceps 3+/4 finger extension 5-/4-, Wrist extension 5/4+, telephone advice nurse 4+/4+. In the lower extremities hip flexion is 3+/1-2, knee extension 5/2-3, ankle dorsiflexion 5/3, toe extension 5-/4. Deep tendon reflexes are biceps 2+/1+, brachioradialis 1+/1+, triceps 0/3, knee 3/2, ankles 2+/1 and plantar is upgoing on the right, flat on left. Patient has nonsustained clonus on the right. Sensations are equal. Patient has ataxia for [id number] testing bilaterally. Gait cannot be tested. There is no obvious bruit, S1 and S2 audible. Abdomen is soft and nontender. Chest is clear. Results - Laboratory Findings CBC and BMP: 08/05/19 05:26 08/05/19 05:26 Abnormal Lab Findings: Abnormal Labs 08/04/19 08/04/19 08/04/19 16:45 17:00 17:00 Eosinophils # 0.8 H PT 19.0 H INR 2.0 H APTT 32.5 H Chloride Glucose POC Glucose (mg/dL) 102 H Calcium Urine Protein Urine Blood Ur Leukocyte Esterase Urine WBC Urine Mucus 08/04/19 08/04/19 08/05/19 17:00 17:35 05:26 Eosinophils # PT INR APTT Chloride 108 H 109 H Glucose 104 H 109 H POC Glucose (mg/dL) Calcium 8.3 L Urine Protein Trace H Urine Blood Moderate H Ur Leukocyte Esterase Large H Urine WBC 17 H Urine Mucus Rare H Assessment and Plan Assessment: * 89-year-old male, with history of multiple falls, has presented with asymmetric weakness of upper and lower extremities with relatively brisk reflexes and nonsustained clonus on the right side. EMG did not reveal any denervation in the distal or proximal muscles of upper limbs, ruling out motor neuron disease. With his history of multiple falls and evidence of cervical and lumbar spinal stenosis on the CT scans raises possibility of cervical and/or lumbar myelopathy. Differential diagnosis is between cervical spinal stenosis with cervical myelopathy versus whiplash injury from falls. 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 Plan: * Patient cannot have MRI of the cervical and lumbar spine because of presence of pacemaker. * I would recommend CT myelogram of the lumbar and cervical spines for evaluation of cervical and lumbar spinal stenosis. He * Patient probably will need neurosurgical consultation for probable spinal stenosis. * Patient is on Coumadin, therefore would need holding off on Coumadin before pursuing CT myelo. * Discussed in detail with primary physician Dr. Hsu. Possible transfer to [facility]. * Would recommend checking hemoglobin A1c, B12, folate, JOSIANE, serum protein electrophoresis and immunofixation electrophoresis. Time with Patient: Greater than 30
--- NOTE | 2019-08-05 15:59 | P.HPIM ---
History of Present Illness H&P Date: 08/05/19 Chief Complaint: Acute weakness and transient encephalopathy Mr. Liu is a 89-year-old male patient with a long-standing history of atrial fibrillation and coronary artery disease apparently never newly diagnosed dementia and possibly newly diagnosed CIDP patient presents to the emergency room after an unresponsive episode at home. When examined in the hospital this patient was awake alert and oriented 3 more complaining about his weakness and several falls that occurred at home. Patient states she has been more fatigued throughout the day and his daughter. This patient has not been eating or drinking as normal he is unable to ambulate at this time naming difficulty even rolling over in bed. Patient currently has a Villas[place]or catheter in chronically it appears he may or may not have a neurogenic bladder secondary to known lumbar stenosis patient has had a history of lumbar disc disease which he has refused over the years they have evaluated or treated from a surgical point of view. Patient stated that he had a fall sometime in April in which he fell and struck his head and he describes the numbness and tingling that he was experiencing in his arms stems directly from that injury. Recent CAT scan of the brain and cervical spine with contrast suggests to possible areas of cervical stenosis as well as known lumbar stenosis as previously described. I've discussed this at length with Dr. Monet neurology steam turbine operator and his recommendation was for yuko lucas to be transferred to a tertiary care facility like and report for complete continuity of care and for neurosurgical evaluation as well as neurologic evaluation to further evaluate patient for CIDP or the like. This is been sent discussed with both his daughter Zahira and his son Yuko Liu and they have discussed and responded in complete agreement. Review of Systems Constitutional: Reports as per HPI Eyes: denies as per HPI, denies blurred vision, denies bulging eye, denies decreased vision, denies diplopia, denies discharge, denies dry eye, denies irritation, denies itching, denies pain, denies photophobia, denies loss of peripheral vision, denies loss of vision, denies tunnel vision/blind spots Ears: bilateral: decreased hearing (Significant hearing loss uses hearing aids occasionally) Ears, nose, mouth and throat: Reports as per HPI Cardiovascular: Reports as per HPI (Known atrial fibrillation) Respiratory: Reports as per HPI Gastrointestinal: Reports as per HPI Genitourinary: Reports as per HPI Musculoskeletal: Reports as per HPI Integumentary: Reports as per HPI Neurological: Reports balance difficulties, Reports gait dysfunction, Reports head injury, Reports weakness Psychiatric: Reports as per HPI Past Medical History Past Medical History: Atrial Fibrillation, Coronary Artery Disease (CAD), Chest Pain / Angina, Heart Failure, Hearing Disorder / Deafness, Hyperlipidemia, Hypertension, Vascular Disorder Additional Past Medical History / Comment(s): Paroxysmal Afib, A/V dissociation with pacer, PVD, RLS, 2014 ARDS during hospitalization for CABG/AVR required extended hospitalization-trach/vent and peg, bronchitis, diverticular disease, [place] bilaterally. 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 Past Anesthesia/Blood Transfusion Reactions: No Reported Reaction Date of Last Stent Placement:: 2010 Type of Cardiac Device: Permanent Pacemaker Device Placement Date:: 03/2014 Past Psychological History: No Psychological Hx Reported Additional Psychological History / Comment(s): Pt resides with his spouse. He has a scooter which he uses occasionally. He owns a cane and walker but does not use them. He drives. Smoking Status: Never smoker Past Alcohol Use History: None Reported Past Drug Use History: None Reported - Past Family History Daughter(s) History Unknown: Yes Family Medical History: Cancer Additional Family Medical History / Comment(s): BREAST Son(s) History Unknown: Yes Family Medical History: Cancer Additional Family Medical History / Comment(s): PANCREATIC Mother History Unknown: Yes Family Medical History: Cancer Additional Family Medical History / Comment(s): Breast cancer- of this at age 49 Father History Unknown: Yes Family Medical History: Myocardial Infarction ([place]) Additional Family Medical History / Comment(s): at age 60 d/t [place] Medications and Allergies Home Medications Medication Instructions Recorded Confirmed Type Atorvastatin [Lipitor] 40 mg PO HS 06/30/14 08/04/19 History Metoprolol Tartrate [Lopressor] 25 mg PO HS 06/30/14 08/04/19 History Docusate [Colace] 100 mg PO BID 05/02/16 08/04/19 History Omeprazole [PriLOSEC] 40 mg PO DAILY PRN 04/22/17 08/04/19 History Baclofen 5 - 10 mg PO HS 08/04/19 08/04/19 History Pregabalin [Lyrica] 150 mg PO BID 08/04/19 08/04/19 History Tamsulosin HCl [Flomax] 0.4 mg PO DAILY 08/04/19 08/04/19 History Warfarin Sodium 2.5 mg PO SUMOWEFR 08/04/19 08/04/19 History Warfarin [Coumadin] 5 mg PO TUTHSA 08/04/19 08/04/19 History Allergies Allergy/AdvReac Type Severity Reaction Status Date / Time cat dander Allergy Itching Verified 08/04/19 17:35 pollen extracts Allergy Unknown Verified 08/04/19 17:35 gabapentin AdvReac dizzy Verified 08/04/19 17:35 Physical Exam Osteopathic Statement: *. No significant issues noted on an osteopathic structural exam other than those noted in the History and Physical/Consult. Vitals: Vital Signs Temp Pulse Pulse Resp BP BP Pulse Ox 08/05/19 08:03 98.2 F 95 16 99/59 96 08/05/19 03:25 97.9 F 86 94/57 94 L 08/04/19 21:40 97.5 F L 100 18 121/69 96 08/04/19 19:38 97.9 F 83 18 109/63 96 08/04/19 18:19 84 18 113/66 95 08/04/19 16:40 98.0 F 92 18 108/71 95 Intake and Output 08/05/19 08/05/19 08/05/19 06:59 14:59 22:59 Output Total 400 Balance -400 Output: Urine 400 Other: Voiding Method Indwelling Catheter # Voids 400 General: [Patient awake, alert and oriented times 3. Patient in no acute distress.] HEENT: [PERRL. EOMI. No pharyngeal erythema or exudate.] Neck: [No adenopathy, does not complain of neck pain Cardiac: [Heart regular in rate and rhythm. No S3. No S4. No clicks, rubs. No murmur.] Lungs: [Clear to auscultation bilaterally.] Abdomen: [No mass. No organomegaly. Bowel sounds presnt and normoactive in all 4 quadrants.] Extremes: [No edema no cyanosis no claudication normal pulses, complains of intermittent low back pain Has a ruptured biceps that was injured several months ago just at the beginning of the cold related crisis, patient does have very asymmetric weakness and is on the right is greater then the left overall : [] Musculoskeletal: [No joint erythema, edema or tenderness.] Skin: [No rash.] Neurologic: Cranial nerves II through XII intact deep tendon reflexes biceps 2+1+ left versus right brachial radialis 1+1+ triceps 0/3 knee3/2 ankles 2+/1 Plantar is up going on the right flat on the left. Patient has nonsustained clonus on the right sensations are equal patient has ataxia referring her to nose testing bilaterally unable to test gait no obvious bruits Tongue does not protrude to the left of the right is definitely midline extraocular muscles intact withnystagmus face is symmetric and palatal elevation and sensations are normal Lymphatic: [No adenopathy.] Results CBC & Chem 7: 08/05/19 05:26 08/05/19 05:26 Labs: Abnormal Lab Results - Last 24 Hours (Table) 08/04/19 08/04/19 08/04/19 Range/Units 16:45 17:00 17:00 Eosinophils # 0.8 H (0-0.7) k/uL PT 19.0 H (9.0-12.0) sec INR 2.0 H (<1.2) APTT 32.5 H (22.0-30.0) sec Chloride (98-107) mmol/L Glucose (74-99) mg/dL POC Glucose (mg/dL) 102 H (75-99) mg/dL Calcium (8.4-10.2) mg/dL Urine Protein (Negative) Urine Blood (Negative) Ur Leukocyte Esterase (Negative) Urine WBC (0-5) /hpf Urine Mucus (None) /hpf 08/04/19 08/04/19 08/05/19 Range/Units 17:00 17:35 05:26 Eosinophils # (0-0.7) k/uL PT (9.0-12.0) sec INR (<1.2) APTT (22.0-30.0) sec Chloride 108 H 109 H (98-107) mmol/L Glucose 104 H 109 H (74-99) mg/dL POC Glucose (mg/dL) (75-99) mg/dL Calcium 8.3 L (8.4-10.2) mg/dL Urine Protein Trace H (Negative) Urine Blood Moderate H (Negative) Ur Leukocyte Esterase Large H (Negative) Urine WBC 17 H (0-5) /hpf Urine Mucus Rare H (None) /hpf Microbiology - Last 24 Hours (Table) 08/04/19 17:35 Urine Culture - Preliminary Urine,Voided Thrombosis Risk Factor Assmnt - DVT/VTE Prophylaxis DVT/VTE Prophylaxis: Pharmacologic Prophylaxis ordered (Patient is already being treated with Coumadin) - Choose All That Apply Each Factor Represents 1 point: Abnormal pulmonary function (COPD) Other Risk Factors: No Thrombosis Risk Factor Assessment Total Risk Factor Score: 1 Thrombosis Risk Factor Assessment Level: Low Risk Assessment and Plan (1) Degenerative lumbar spinal stenosis Current Visit: Yes Status: Acute Code(s): M48.061 - SPINAL STENOSIS, LUMBAR REGION WITHOUT NEUROGENIC WILFREDO SNOMED Code(s): 161877487 (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 Monet neurology Case discussed with both his daughter Zahira and son Yuko Liu Case discussed with patient all are in agreement the decision has been made to transfer patient to the care of neurosurgery and neurology team at [facility] for further evaluation and treatment Time with Patient: Greater than 30
[2019-08-05 16:03] VITALS: BP 121/73; PULSE 87; RESP 18
[2019-08-05] MEDS ORDERED: HYDROcodone/APAP 5-325MG 1 EACH TAB PO STA (18:29)
== END 2019-08-05 18:32 | disposition other institution (70) ==
LOC: EC 16:29 → 4SSUR 19:44
PROVIDERS: ADMIT Family Medicine; ATTEND Family Medicine
DX: M48.061 Spinal stenosis, lumbar region without neurogenic claudication (principal); I25.10 Atherosclerotic heart disease of native coronary artery without angina pectoris; R29.6 Repeated falls; M51.9 Unspecified thoracic, thoracolumbar and lumbosacral intervertebral disc disorder; I11.0 Hypertensive heart disease with heart failure; I50.9 Heart failure, unspecified; E78.5 Hyperlipidemia, unspecified; G25.81 Restless legs syndrome; H91.93 Unspecified hearing loss, bilateral; J44.9 Chronic obstructive pulmonary disease, unspecified; G99.2 Myelopathy in diseases classified elsewhere; M48.02 Spinal stenosis, cervical region; G93.40 Encephalopathy, unspecified; I48.0 Paroxysmal atrial fibrillation; G61.81 Chronic inflammatory demyelinating polyneuritis; F03.90 Unspecified dementia, unspecified severity, without behavioral disturbance, psychotic disturbance, mood disturbance, and anxiety; R06.81 Apnea, not elsewhere classified; Z91.81 History of falling; G56.03 Carpal tunnel syndrome, bilateral upper limbs; I73.9 Peripheral vascular disease, unspecified; R82.90 Unspecified abnormal findings in urine; R32 Unspecified urinary incontinence; M50.30 Other cervical disc degeneration, unspecified cervical region; K59.00 Constipation, unspecified; Z96.0 Presence of urogenital implants; Z97.4 Presence of external hearing-aid; Z95.0 Presence of cardiac pacemaker; Z95.1 Presence of aortocoronary bypass graft; Z87.09 Personal history of other diseases of the respiratory system; Z87.440 Personal history of urinary (tract) infections; Z95.5 Presence of coronary angioplasty implant and graft; Z79.899 Other long term (current) drug therapy; Z79.01 Long term (current) use of anticoagulants; Z88.8 Allergy status to other drugs, medicaments and biological substances; J30.81 Allergic rhinitis due to animal (cat) (dog) hair and dander; J30.1 Allergic rhinitis due to pollen; Z80.3 Family history of malignant neoplasm of breast; Z82.49 Family history of ischemic heart disease and other diseases of the circulatory system; Z80.8 Family history of malignant neoplasm of other organs or systems; Z20.828 Contact with and (suspected) exposure to other viral communicable diseases
CPT/HCPCS: 96361; 96374; 99285; 36415; 93005; 80053; 80048; 82550; 84484 ×2; 85025 ×2; 85610; 85730; 81001; 87040; 87086; 87077; 87186; 71046; 70450; G0378 ×2; U0003; J0696